=== PATIENT | female | born 1930 | race Caucasian/White ===

== ENCOUNTER 2016-11-04 10:22 | Inpatient (IN) | payer MEDICARE, BC ==
[2016-11-04] MEDS ORDERED: Diltiazem 25 MG/5 ML SDV IVPUSH STA (10:59)
[2016-11-04] MEDS ORDERED: Diltiazem 125 MG in Sodium Chloride 0.9% 100 ML IV SCH (11:00)
[2016-11-04] MEDS ORDERED: Enoxaparin 80 MG/0.8 ML Syringe SUBCUT STA (11:00)
--- NOTE | 2016-11-04 11:10 | EDM.PDOC ---
ED HPI GENERAL MEDICAL PROBLEM - General Chief Complaint: Cardiovascular Problem Stated Complaint: WEAK Time Seen by Provider: 11/04/16 10:29 Source of Information: Reports: Patient, Family, RN Notes Reviewed History Limitations: Reports: No Limitations - History of Present Illness INITIAL COMMENTS - FREE TEXT/NARRATIVE: The patient states that she tried to get up around 04:00 this morning, but was too weak. Her generalized weakness has persisted. She denies chest pain, palpitations, dyspnea, nausea, vomiting, diaphoresis, anxiety, constipation, diarrhea, or urinary symptoms. She states that she has had similar symptoms where she was too weak to stand last year, but it lasted only about 30 minutes, and the patient did not seek Medical evaluation. The patient's PCP is Morenita Guerra. - Related Data Allergies Allergy/AdvReac Type Severity Reaction Status Date / Time No Known Allergies Allergy Verified 11/04/16 10:58 Home Meds: Home Meds Aspirin [Ecotrin] 81 mg PO DAILY 11/04/16 [History] Atenolol 25 mg PO BID 11/04/16 [History] Benazepril [Lotensin] 60 mg PO DAILY 11/04/16 [History] Simvastatin [Zocor] 20 mg PO QPM 11/04/16 [History] Triamterene/Hydrochlorothiazid [Triamterene-HCTZ 75-50 MG] 0.5 tab PO DAILY [History] amLODIPine [Norvasc] 2.5 mg PO DAILY 11/04/16 [History] glipiZIDE [Glucotrol] 2.5 mg PO BID 11/04/16 [History] Past Medical History Cardiovascular History: Reports: High Cholesterol, Hypertension Musculoskeletal History: Reports: Arthritis Endocrine/Metabolic History: Reports: Diabetes, Type II - Past Surgical History HEENT Surgical History: Reports: Cataract Surgery, Tonsillectomy GI Surgical History: Reports: Appendectomy, Cholecystectomy Female Surgical History: Reports: Hysterectomy Musculoskeletal Surgical History: Reports: Arthroscopic Procedure (right knee) Social & Family History - Tobacco Use Smoking Status *Q: Never Smoker - Caffeine Use Caffeine Use: Reports: Coffee - Alcohol Use Alcohol Use History: Yes Alcohol Use Frequency: Socially - Recreational Drug Use Recreational Drug Use: No - Living Situation & Occupation Living situation: Reports: , Alone Occupation: Retired ED ROS GENERAL - Review of Systems Review Of Systems: See Below Constitutional: Reports: No Symptoms HEENT: Reports: No Symptoms Respiratory: Reports: No Symptoms Cardiovascular: Reports: No Symptoms Endocrine: Reports: No Symptoms GI/Abdominal: Reports: No Symptoms : Reports: No Symptoms Musculoskeletal: Reports: No Symptoms Skin: Reports: No Symptoms Neurological: Reports: No Symptoms Psychiatric: Reports: No Symptoms Hematologic/Lymphatic: Reports: No Symptoms Immunologic: Reports: No Symptoms ED EXAM, GENERAL - Physical Exam Exam: See Below Exam Limited By: No Limitations General Appearance: Alert, WD/WN, No Apparent Distress Eye Exam: Bilateral Eye: Normal Inspection Ears: Normal External Exam, Hearing Grossly Normal Ear Exam: Bilateral Ear: Auricle Normal Nose: Normal Inspection, No Blood Throat/Mouth: Normal Inspection, Normal Lips, Normal Voice, No Airway Compromise Head: Atraumatic, Normocephalic Neck: Normal Inspection, Full Range of Motion Respiratory/Chest: No Respiratory Distress, Lungs Clear, Normal Breath Sounds, No Accessory Muscle Use Cardiovascular: Normal Peripheral Pulses, No Edema, No Gallop, No JVD, No Murmur , No Rub, Tachycardia, Irregularly Irregular Peripheral Pulses: 4+: Radial (L), Radial (R) GI/Abdominal: Normal Bowel Sounds, Soft, Non-Tender, No Organomegaly, No Distention, No Abnormal Bruit, No Mass (Female) Exam: Deferred Rectal (Female) Exam: Deferred Back Exam: Normal Inspection, Full Range of Motion, NT Extremities: Normal Inspection, Normal Range of Motion, No Pedal Edema, Normal Capillary Refill Neurological: Alert, Oriented, Normal Cognition, No Motor/Sensory Deficits Psychiatric: Normal Affect Skin Exam: Warm, Dry, Intact, Normal Color, No Rash Lymphatic: No Adenopathy EKG INTERPRETATION EKG Date: 11/04/16 Time: 10:32 Rhythm: a-fib Rate (beats/min): 130 [place]: normal P-wave: absent QRS: normal ST-T: normal QT: normal Comparison: NA - no prior EKG Course - Vital Signs Last Recorded V/S: Last Vital Signs Temp 36.3 C 11/04/16 10:26 Pulse 140 H 11/04/16 10:26 Resp 18 11/04/16 10:26 BP 159/101 H 11/04/16 10:26 Pulse Ox 97 11/04/16 10:26 - Orders/Labs/Meds Orders: Active Orders 24 hr Category Date Time Status EKG Documentation Completion [RC] STAT Care 11/04/16 10:35 Active EKG Documentation Completion [RC] STAT Care 11/04/16 11:39 Active Diltiazem 125 mg Med 11/04/16 11:00 Active Sodium Chloride 0.9% [Normal Saline] 100 ml IV TITRATE Sodium Chloride 0.9% [Normal Saline] 1,000 ml Med 11/04/16 13:00 Active IV ASDIRECTED Sodium Chloride 0.9% [Normal Saline] 100 ml Med 11/04/16 13:00 Active IV ASDIRECTED Sodium Chloride 0.9% [Saline Flush] Med 11/04/16 12:52 Active 10 ml FLUSH ONETIME PRN Medication Orders Diltiazem HCl 125 mg/ Sodium (Chloride) 125 mls @ 10 mls/hr IV TITRATE YOLANDA; 10 MG/HR PRN Reason: Protocol Last Admin: 11/04/16 11:35 Dose: 10 mg/hr, 10 mls/hr Sodium Chloride (Normal Saline) 1,000 mls @ 80 mls/hr IV ASDIRECTED YOLANDA Last Admin: 11/04/16 13:32 Dose: 80 mls/hr Sodium Chloride (Normal Saline) 100 mls @ 80 mls/hr IV ASDIRECTED YOLANDA Last Admin: 11/04/16 13:16 Dose: 80 mls/hr Sodium Chloride (Saline Flush) 10 ml FLUSH ONETIME PRN PRN Reason: IV FLUSH Last Admin: 11/04/16 13:16 Dose: 10 ml Labs: Laboratory Tests 11/04/16 11/04/16 11/04/16 Range/Units 10:30 10:30 10:30 WBC 12.27 H (3.98-10.04) K/mm3 RBC 4.15 (3.98-5.22) M/mm3 Hgb 13.6 (11.2-15.7) gm/L Hct 40.9 (34.1-44.9) % MCV 98.6 H (79.4-94.8) fl MCH 32.8 H (25.6-32.2) pg MCHC 33.3 (32.2-35.5) g/dl RDW Std Deviation 47.5 H (36.4-46.3) fL Plt Count 317 (182-369) K/mm3 MPV 10.2 (9.4-12.3) fl Neutrophils % (Manual) 72 H (40-60) % Band Neutrophils % 2 (0-10) % Lymphocytes % (Manual) 17 L (20-40) % Atypical Lymphs % 0 % Monocytes % (Manual) 7 (2-10) % Eosinophils % (Manual) 0 L (0.7-5.8) % Basophils % (Manual) 2 H (0.1-1.2) Platelet Estimate Adequate RBC Morph Comment Normal PT (8.0-13.0) SECONDS INR APTT (22-36) SECONDS D-Dimer, Quantitative 2.00 H (0.19-0.59) mg/L Sodium 141 (136-145) mEq/L Potassium 4.2 (3.5-5.1) mEq/L Chloride 103 (98-107) mEq/L Carbon Dioxide 26 (21-32) mEq/L Anion Gap 16.2 H (5-15) BUN 29 H (7-18) mg/dL Creatinine 1.3 H (0.55-1.02) mg/dL Est Cr Clr Drug Dosing 26.33 mL/min Estimated GFR (MDRD) 39 (>60) mL/min BUN/Creatinine Ratio 22.3 H (14-18) Glucose 174 H (83-115) mg/dL Calcium 9.3 (8.5-10.1) mg/dL Magnesium 2.0 (1.8-2.4) mg/dl Total Bilirubin 1.0 (0.2-1.0) mg/dL AST 21 (15-37) U/L ALT 41 (14-59) U/L Alkaline Phosphatase 133 H (46-116) U/L Troponin I 0.030 (0.00-0.056) ng/mL B-Natriuretic Peptide (0-100) pg/mL Total Protein 8.6 H (6.4-8.2) g/dl Albumin 4.4 (3.4-5.0) g/dl Globulin 4.2 gm/dL Albumin/Globulin Ratio 1.1 (1-2) TSH 3rd Generation 2.110 (0.358-3.74) uIU/mL Urine Color (Yellow) Urine Appearance (Clear) Urine pH (5.0-8.0) Ur Specific [place] (1.005-1.030) Urine Protein (Negative) Urine Glucose (UA) (Negative) Urine Ketones (Negative) Urine Occult Blood (Negative) Urine Nitrite (Negative) Urine Bilirubin (Negative) Urine Urobilinogen (0.2-1.0) Ur Leukocyte Esterase (Negative) Urine RBC (0-5) /hpf Urine WBC (0-5) /hpf Ur Epithelial Cells (0-5) /hpf Urine Bacteria (FEW) /hpf Urine Mucus (FEW) /hpf 11/04/16 11/04/16 11/04/16 Range/Units 10:30 10:30 11:00 WBC (3.98-10.04) K/mm3 RBC (3.98-5.22) M/mm3 Hgb (11.2-15.7) gm/L Hct (34.1-44.9) % MCV (79.4-94.8) fl MCH (25.6-32.2) pg MCHC (32.2-35.5) g/dl RDW Std Deviation (36.4-46.3) fL Plt Count (182-369) K/mm3 MPV (9.4-12.3) fl Neutrophils % (Manual) (40-60) % Band Neutrophils % (0-10) % Lymphocytes % (Manual) (20-40) % Atypical Lymphs % % Monocytes % (Manual) (2-10) % Eosinophils % (Manual) (0.7-5.8) % Basophils % (Manual) (0.1-1.2) Platelet Estimate RBC Morph Comment PT 11.2 (8.0-13.0) SECONDS INR 1.03 APTT 26 (22-36) SECONDS D-Dimer, Quantitative (0.19-0.59) mg/L Sodium (136-145) mEq/L Potassium (3.5-5.1) mEq/L Chloride (98-107) mEq/L Carbon Dioxide (21-32) mEq/L Anion Gap (5-15) BUN (7-18) mg/dL Creatinine (0.55-1.02) mg/dL Est Cr Clr Drug Dosing mL/min Estimated GFR (MDRD) (>60) mL/min BUN/Creatinine Ratio (14-18) Glucose (83-115) mg/dL Calcium (8.5-10.1) mg/dL Magnesium (1.8-2.4) mg/dl Total Bilirubin (0.2-1.0) mg/dL AST (15-37) U/L ALT (14-59) U/L Alkaline Phosphatase (46-116) U/L Troponin I (0.00-0.056) ng/mL B-Natriuretic Peptide 454 H (0-100) pg/mL Total Protein (6.4-8.2) g/dl Albumin (3.4-5.0) g/dl Globulin gm/dL Albumin/Globulin Ratio (1-2) TSH 3rd Generation (0.358-3.74) uIU/mL Urine Color Yellow (Yellow) Urine Appearance Clear (Clear) Urine pH 6.0 (5.0-8.0) Ur Specific [place] 1.010 (1.005-1.030) Urine Protein Negative (Negative) Urine Glucose (UA) Negative (Negative) Urine Ketones Negative (Negative) Urine Occult Blood Negative (Negative) Urine Nitrite Negative (Negative) Urine Bilirubin Negative (Negative) Urine Urobilinogen 0.2 (0.2-1.0) Ur Leukocyte Esterase Negative (Negative) Urine RBC Not seen (0-5) /hpf Urine WBC Not seen (0-5) /hpf Ur Epithelial Cells Not seen (0-5) /hpf Urine Bacteria Not seen (FEW) /hpf Urine Mucus Not seen (FEW) /hpf Meds: Medications Generic Name Dose Route Start Last Admin Trade Name Freq PRN Reason Stop Dose Admin Diltiazem HCl 125 mg/ Sodium 125 mls @ 10 mls/hr 11/04/16 11:00 11/04/16 11: 35 Chloride IV 10 mg/hr TITRATE YOLANDA 10 mls/hr Protocol Administration 10 MG/HR Sodium Chloride 1,000 mls @ 80 mls/hr 11/04/16 13:00 11/04/16 13:32 Normal Saline IV 80 mls/hr ASDIRECTED YOLANDA Administration Sodium Chloride 100 mls @ 80 mls/hr 11/04/16 13:00 11/04/16 13:16 Normal Saline IV 80 mls/hr ASDIRECTED YOLANDA Administration Sodium Chloride 10 ml 11/04/16 12:52 11/04/16 13:16 Saline Flush FLUSH 10 ml ONETIME PRN Administration IV FLUSH Discontinued Medications Generic Name Dose Route Start Last Admin Trade Name Freq PRN Reason Stop Dose Admin Diltiazem HCl 20 mg 11/04/16 10:59 11/04/16 11:09 Diltiazem IVPUSH 11/04/16 11:00 20 mg ONETIME STA Administration Enoxaparin Sodium 80 mg 11/04/16 11:00 11/04/16 11:18 Lovenox SUBCUT 11/04/16 11:01 80 mg ONETIME STA Administration Iopamidol 100 ml 11/04/16 12:52 11/04/16 13:16 Isovue-370 (76%) IVPUSH 11/04/16 12:53 100 ml ONETIME ONE Administration - Radiology Interpretation Free Text/Narrative:: Two-view chest radiograph reviewed. Cardiac silhouette is at the upper limits of normal. Mild pulmonary vascular congestion, suggestive of mild CHF decompensation. No pleural effusions. No focal infiltrate. No pneumothorax. Formal read per the Radiologist pending. CT angiogram of the chest is read by Dr. Atkinson as: 1. No findings of pulmonary embolism. 2. Several small nodules within the right middle lobe and lung base which are nonspecific measuring less than 5 mm. 3. Other incidental findings. - Re-Assessments/Exams Free Text/Narrative Re-Assessment/Exam: 11/04/16 11:19 The patient is in atrial fibrillation with rapid ventricular response. I will start her on Cardizem IV push and drip, and anticoagulate with subcutaneous Lovenox. She will require admission. 11/04/16 11:40 The patient appears to have converted to NSR. I have ordered a repeat ECG to confirm. 11/04/16 12:00 The patient's repeat ECG shows atrial fibrillation at 88 bpm. It is unclear if the patient converted to sinus rhythm and re-developed to atrial fibrillation, or if she remained in atrial fibrillation entire time. 11/04/16 14:[address] Heart at 14:47. He agrees to admit the patient to the ICU. Departure - Departure Time of Disposition: 14:50 Disposition: Admitted As Inpatient 65 Condition: fair Clinical Impression: New onset atrial fibrillation - My Orders Last 24 Hours: My Active Orders 11/04/16 10:35 EKG Documentation Completion [RC] STAT 11/04/16 11:00 Diltiazem 125 mg Sodium Chloride 0.9% [Normal Saline] 100 ml IV TITRATE 11/04/16 11:39 EKG Documentation Completion [RC] STAT 11/04/16 12:52 Sodium Chloride 0.9% [Saline Flush] 10 ml FLUSH ONETIME PRN 11/04/16 13:00 Sodium Chloride 0.9% [Normal Saline] 1,000 ml IV ASDIRECTED Sodium Chloride 0.9% [Normal Saline] 100 ml IV ASDIRECTED - Assessment/Plan Last 24 Hours: My Active Orders 11/04/16 10:35 EKG Documentation Completion [RC] STAT 11/04/16 11:00 Diltiazem 125 mg Sodium Chloride 0.9% [Normal Saline] 100 ml IV TITRATE 11/04/16 11:39 EKG Documentation Completion [RC] STAT 11/04/16 12:52 Sodium Chloride 0.9% [Saline Flush] 10 ml FLUSH ONETIME PRN 11/04/16 13:00 Sodium Chloride 0.9% [Normal Saline] 1,000 ml IV ASDIRECTED Sodium Chloride 0.9% [Normal Saline] 100 ml IV ASDIRECTED
--- NOTE | 2016-11-04 12:28 | CR ---
Chest: Two views of the chest were obtained. Comparison: No previous study. Heart is enlarged. Upper mediastinum is normal. Pulmonary vessels are felt to be minimally congested. Mild degenerative change is seen within the spine. Impression: 1. Findings suggestive of mild CHF. Diagnostic code #3
[2016-11-04] MEDS ORDERED: Iopamidol 755 Mg/ML 100 ML Bottle IVPUSH ONE (12:52)
[2016-11-04] MEDS ORDERED: Sodium Chloride 0.9% 100 ML IV SCH (13:00)
[2016-11-04] MEDS ORDERED: Sodium Chloride 0.9% 1,000 ML IV SCH (13:00)
[2016-11-04] MEDS: Sodium Chloride 0.9% 10 ML Syringe FLUSH PRN (13:16)
--- NOTE | 2016-11-04 13:34 | CT ---
CT chest Technique: Multiple axial sections through the chest were obtained. Intravenous contrast was utilized. Findings: Pulmonary arteries are moderately well opacified. No discrete filling defects are seen to indicate pulmonary embolism. Mild coronary artery calcification is seen. Heart is mildly enlarged. Visualized upper abdominal structures appear within normal limits. Mediastinum and hilar regions show small lymph nodes which are felt to be within normal limits. Small subpleural several small nodules are noted within the right middle lobe and right lung base measuring less than 5 mm. Lungs otherwise are clear. Bone window settings shows scattered degenerative spurring within the spine. Impression: 1. No findings of pulmonary embolism. 2. Several small nodules within the right middle lobe and right lung base which are nonspecific measuring less than 5 mm. 3. Other incidental findings. Diagnostic code #3
--- NOTE | 2016-11-04 15:09 | PCM.HP ---
H&P History of Present Illness - General Date of Service: 11/04/16 Admit Problem/Dx: Atrial Fibrillation with RVR and Generalized Weakness Source of Information: Patient, Family, Provider, RN Notes Reviewed History Limitations: Reports: No Limitations - History of Present Illness Initial Comments - Free Text/Narative: This is an 86 yo elderly white female with past medical hx/o HTN, HLD, OA and DM2 who comes in with complaints of generalized weakness that started about 4 o' clock this morning. She denies any other associated symptoms. Patient reports a similar episode about a year ago that lasted about half an hour but did not seek medical evaluation. Patient carries no hx/o CAD, Lung Disease or Malignant Cardiac Rhythm. She denies having any thyroid issues. Her initial work up in ED shows a CBC remarkable for WBC of 12.27, and Neutrophils of 72%. Her chemistry is significant for AG of 16.2, BUN of 29, Cr of 1.3, BNP of 454, Alk Phos 133, INR of 1.03, and D-dimer of 2. Her TSh is 2.1. CXR shows minimal pulmonary vascular congestion. CTA shows no PE but noted for several small nodules with the RML and RLL measuring < 5 mm. Her EKG shows Atrial fibrillation with a HR of 130 and PVCs. Patient received initial treatment in ED for rate control before she was sent to the unit for further management. She is presumptive full code at this time. - Related Data Allergies/Adverse Reactions: Allergies Allergy/AdvReac Type Severity Reaction Status Date / Time No Known Allergies Allergy Verified 11/04/16 10:58 Home Medications: Home Meds Aspirin [Ecotrin] 81 mg PO DAILY 11/04/16 [History] Atenolol 25 mg PO BID 11/04/16 [History] Benazepril [Lotensin] 60 mg PO DAILY 11/04/16 [History] Simvastatin [Zocor] 20 mg PO QPM 11/04/16 [History] Triamterene/Hydrochlorothiazid [Triamterene-HCTZ 75-50 MG] 0.5 tab PO DAILY [History] amLODIPine [Norvasc] 2.5 mg PO DAILY 11/04/16 [History] glipiZIDE [Glucotrol] 2.5 mg PO BID 11/04/16 [History] Past Medical History Cardiovascular History: Reports: High Cholesterol, Hypertension APPLICATION SUPPORT INTERN History: Reports: Musculoskeletal History: Reports: Arthritis Endocrine/Metabolic History: Reports: Diabetes, Type II - Past Surgical History HEENT Surgical History: Reports: Cataract Surgery, Tonsillectomy GI Surgical History: Reports: Appendectomy, Cholecystectomy Female Surgical History: Reports: Hysterectomy Musculoskeletal Surgical History: Reports: Arthroscopic Procedure (right knee) Social & Family History - Tobacco Use Smoking Status *Q: Never Smoker - Caffeine Use Caffeine Use: Reports: Coffee - Recreational Drug Use Recreational Drug Use: No - Living Situation & Occupation Living situation: Reports: , Alone Occupation: Retired H&P Review of Systems - Review of Systems: Review Of Systems: See Below General: Denies: Fever, Chills, Fatigue, Decreased Appetite HEENT: Reports: No Symptoms Pulmonary: Denies: Shortness of Breath Cardiovascular: Denies: Chest Pain, Palpitations, Dyspnea on Exertion, Edema, Lightheadedness, Syncope, Blood Pressure Problem Gastrointestinal: Denies: Abdominal Pain, Nausea, Vomiting Genitourinary: Reports: No Symptoms Musculoskeletal: Reports: No Symptoms Skin: Denies: Cyanosis, Pruritis, Rash, Erythema Psychiatric: Denies: Depression, Anxiety, Cravings, Hallucinations Neurological: Denies: Confusion, Syncope, Difficulty Walking, Gait Disturbance Hematologic/Lymphatic: Reports: No Symptoms Immunologic: Reports: No Symptoms Exam - Exam Exam: See Below - Vital Signs Vital Signs: Last Vital Signs Temp 36.3 C 11/04/16 10:26 Pulse 140 H 11/04/16 10:26 Resp 18 11/04/16 10:26 BP 159/101 H 11/04/16 10:26 Pulse Ox 97 11/04/16 10:26 Weight: 80.739 kg - Exam General: Alert, Oriented, Cooperative. No: Mild Distress HEENT: Conjunctiva Clear, EACs Clear, EOMI, Hearing Intact, Mucosa Moist & [place] , Nares Patent, Normal Nasal Septum, Posterior Pharynx Clear, Pupils Equal, Pupils Reactive Neck: Supple, Trachea Midline Lungs: Clear to Auscultation, Normal Respiratory Effort Cardiovascular: Irregular Rhythm Abdomen: Normal Bowel Sounds, Soft. No: Organomegaly, Tenderness (Female) Exam: Deferred Rectal (Female) Exam: Deferred Back Exam: Normal Inspection, Vertebral Tenderness Extremities: Normal Inspection, Normal Pulses. No: Edema Peripheral Pulses: 2+: Posterior Tibial (L), Posterior Tibial (R), Dorsalis Pedis (L), Dorsalis Pedis (R) Skin: Warm, Dry, Intact Neuro Extensive - Mental Status: Oriented x3, Normal Cognition, Memory Intact Neuro Extensive - Motor, Sensory, Reflexes: CN II-XII Intact, Normal Gait Psychiatric: Alert, Normal Affect, Normal Mood - Patient Data Result Diagrams: 11/04/16 10:30 11/04/16 10:30 *Q Meaningful Use (ADM) - VTE *Q VTE Criteria *Q: - Stroke *Q Stroke Criteria *Q: - AMI *Q AMI Criteria *Q: Problem List Initiated/Reviewed/Updated: Yes Orders Last 24hrs: Medication Orders Diltiazem HCl 125 mg/ Sodium (Chloride) 125 mls @ 10 mls/hr IV TITRATE YOLANDA; 10 MG/HR PRN Reason: Protocol Last Admin: 11/04/16 11:35 Dose: 10 mg/hr, 10 mls/hr Sodium Chloride (Normal Saline) 1,000 mls @ 80 mls/hr IV ASDIRECTED YOLANDA Last Admin: 11/04/16 13:32 Dose: 80 mls/hr Sodium Chloride (Saline Flush) 10 ml FLUSH ONETIME PRN PRN Reason: IV FLUSH Last Admin: 11/04/16 13:16 Dose: 10 ml Assessment/Plan Comment:: Assessment/Plan: Acute: New Onset of Atrial Fibrillation with RVR - HR in the 130s - Had similar episode in the past: over a year ago - It's possible this is PAF - Responded to well to Cardizem - [id number] Score is 5 High Risk with 6.7% Yearly Risk of Stroke w/o Anticoagulation - Offered Warfarin vs DOACs: she selected xarelto po daily for convenience ( pharmacy to dose) - No recent GI, Neurologic, Spinal or Any kind of Major Bleed - HAS BLED Score: 3 points patient is at high risk for major bleeding - Patient also on ASA which would even put her at a higher risk for stroke - Discussed with patient, we will d/c ASA and keep her only on xarelto Elevated BNP - BNP 454 - Could not appreciate volume overload status - She denies any hx/o HF - Possible she may have HF with Reduced EF (Diastolic) - ED echo and repeat level in am Elevated D-Dimer - CTA negative Small Several Pulmonary Nodules - On RMl and RLL measuring < 5 mm - Informed patient and daughter who was present at bedside Chronic: HTN HLD OA DM2 Plan: Admit to ICU W/ Tele She is currently on Cardizem drip Resume Home Meds PT/OT consult FT4 and Vit D level CE Q6 X 2 more SW/CM for d/c planning Code Status: TBD (presumptive full code at this time)
[2016-11-04] MEDS ORDERED: Diphtheria,Pertussis(Acell),Tetanus Vaccine 0.5 ML SDV inactive IM ONE (15:38)
[2016-11-04] MEDS ORDERED: Metoprolol Tartrate 5 MG/5 ML SDV IVPUSH PRN (16:28)
[2016-11-04] MEDS ORDERED: hydrALAZINE 20 MG/ML SDV IVPUSH PRN (16:28)
[2016-11-04] MEDS ORDERED: Bisacodyl 5 MG Tab PO PRN (16:29)
[2016-11-04] MEDS ORDERED: Acetaminophen/HYDROcodone 325-5 MG Tab PO PRN (16:29)
[2016-11-04] MEDS ORDERED: Ondansetron 4 MG/2 ML SDV IV PRN (16:29)
[2016-11-04] MEDS ORDERED: HYDROmorphone 0.5 MG/0.5 ML Syringe IVPUSH PRN (16:29)
[2016-11-04] MEDS ORDERED: Promethazine 12.5 MG in Sodium Chloride 0.9% 50 ML IV PRN (16:29)
[2016-11-04] MEDS ORDERED: Polyethylene Glycol 3350 Powder 17 GM Packet PO PRN (16:29)
[2016-11-04] MEDS ORDERED: Albuterol/Ipratropium 3.0-0.5 MG/3 ML Neb Soln NEB PRN (16:29)
[2016-11-04] MEDS ORDERED: Temazepam 7.5 MG Cap PO PRN (16:29)
[2016-11-04] MEDS ORDERED: Acetaminophen 325 MG Tab PO PRN (16:29)
[2016-11-04] MEDS ORDERED: LORazepam 2 MG/ML MDV IV PRN (16:29)
[2016-11-04] MEDS ORDERED: Diltiazem 120 MG Cap.CD PO ONE (16:36)
[2016-11-04] MEDS ORDERED: Simvastatin 10 MG Tab PO SCH (18:00)
[2016-11-04] MEDS: glipiZIDE 5 MG Tab PO SCH (20:35)
[2016-11-04] MEDS: Atenolol 25 MG Tab PO SCH (20:35)
[2016-11-05] MEDS: Atenolol 25 MG Tab PO SCH (08:24)
[2016-11-05] MEDS: glipiZIDE 5 MG Tab PO SCH (08:24)
[2016-11-05] MEDS: Sodium Chloride 0.9% 10 ML Syringe FLUSH PRN (08:29)
[2016-11-05] MEDS ORDERED: Diltiazem 120 MG Cap.CD PO SCH (09:00)
[2016-11-05] MEDS ORDERED: Hydrochlorothiazide/Triamterene 50-75 MG Tab PO SCH (09:00)
[2016-11-05] MEDS ORDERED: amLODIPine 2.5 MG Tab PO SCH (09:00)
[2016-11-05] MEDS ORDERED: Aspirin 81 MG Tab.EC PO SCH (09:00)
[2016-11-05] MEDS ORDERED: Rivaroxaban 10 MG Tab PO SCH (10:00)
--- NOTE | 2016-11-05 12:03 | PCM.DCSUM1 ---
Discharge Summary - Hospital Course Brief History: This is an 86 yo elderly white female with past medical hx/o HTN , HLD, OA and DM2 who comes in with complaints of generalized weakness and was found in Atrial Fibrillation with RVR. - Discharge Data Discharge Date: 11/05/16 Discharge Disposition: Home, Self-Care 01 Condition: Good - Discharge Diagnosis/Problem(s) (1) New onset atrial fibrillation SNOMED Code(s): 80682763 ICD Code: I48.91 - UNSPECIFIED ATRIAL FIBRILLATION Status: Acute - Patient Summary/Data Operative Procedure(s) Performed: None Complications: None Consults: Consultations 11/04/16 16:33 Consult to Case Management [CONS] Routine Consult to Motel Manager [CONS] Routine Consult to Spiritual Care [CONS] Routine OT Evaluation and Treatment [CONS] Routine PT Evaluation and Treatment [CONS] Routine Recommended Follow-up Testing/Procedures: None Hospital Course: Patient was primarily admitted for medical management of new onset of atrial fibrillation with RVR. Patient received initial treatment in the emergency department before she was sent to the unit for further care. Patient was then placed on calcium channel mely for rate control along with her atenolol home dose. She responded well to treatment. After discussing traditional anticoagulation versus direct oral anticoagulation , the patient elected xarelto for convenience. Patient carries [id number] Score is 5 and HAS BLED Score of 3 putting her at high risk for major bleeding. Therefore, we decided to stop her aspirin, keep her xarelto only. Her hospital course was fairly uncomplicated. However, she was found to have elevated d-dimer and admission, but CTA was negative for blood clot. Abnormal finding of small several pulmonary nodules on right middle lobe and right lower lobe, measuring less than 5 mm were found on his CT scan. This was relayed to the patient and her daughter. Patient to have this monitored by her family doctor. Overall, patient has done well since admission. She is now ready for discharge. She will go home with xarelto along with Cardizem as part of her rate control and stroke prophylaxis meds for atrial fibrillation. Patient was advised to followup with her primary care has a scheduled. She was further advised to call her doctor for any questions or concerns. - Patient Instructions Diet: Usual Diet as Tolerated, Diabetic Diet Activity: As Tolerated Driving: Do Not Drive Showering/Bathing: May Shower Notify Provider of: Fever, Increased Pain, Nausea and/or Vomiting Other/Special Instructions: - Please take all your meds as directed. - Avoid NSAIDs e.g. Motrin, Ibuprofen, Advil and Aleve. - Follow up with your doctor in 1 week. - Call your family doctor for any questions or concerns - Discharge Plan Prescriptions/Med Rec: Diltiazem [Cardizem CD] 120 mg PO DAILY #30 cap.cd Rivaroxaban [Xarelto] 15 mg PO DAILY #30 tablet Home Medications: Home Meds Atenolol 25 mg PO BID 11/04/16 [History] Benazepril [Lotensin] 60 mg PO DAILY 11/04/16 [History] Simvastatin [Zocor] 20 mg PO QPM 11/04/16 [History] Triamterene/Hydrochlorothiazid [Triamterene-HCTZ 75-50 MG] 0.5 tab PO DAILY [History] amLODIPine [Norvasc] 2.5 mg PO DAILY 11/04/16 [History] glipiZIDE [Glucotrol] 2.5 mg PO BID 11/04/16 [History] Diltiazem [Cardizem CD] 120 mg PO DAILY #30 cap.cd 11/05/16 [Rx] Rivaroxaban [Xarelto] 15 mg PO DAILY #30 tablet 11/05/16 [Rx] Patient Handouts: Rivaroxaban oral tablets, Atrial Fibrillation, [id number] Referrals: Morenita Guerra NP [Primary Care Provider] - 11/10/16 9:30 am - Discharge Summary/Plan Comment DC Time >30 min.: Yes (45 mins) Discharge Summary/Plan Comment: Discharge to Home - General Info Date of Service: 11/05/16 Admission Dx/Problem (Free Text: Atrial Fibrillation with RVR and Generalized Weakness Subjective Update: Follow Up Functional Status: Reports: pain controlled, tolerating diet, ambulating, urinating. Denies: new symptoms - Review of Systems General: Denies: Fever, Weakness, Fatigue, Malaise HEENT: Reports: no symptoms Pulmonary: Denies: shortness of breath Cardiovascular: Denies: Chest Pain, Palpitations Gastrointestinal: Denies: Abdominal pain, Nausea, Vomiting Genitourinary: Reports: no symptoms Musculoskeletal: Reports: no symptoms Neurological: Reports: No Symptoms. Denies: Confusion, Difficulty Walking, Weakness, Gait Disturbance Psychiatric: Denies: depression, mood lability, anxiety, agitation, hallucinations Systems Review Comment: No overnight or acute issues. She is doing relatively well. - Patient Data Vitals - Most Recent: Last Vital Signs Temp 36.8 C 11/05/16 11:27 Pulse 93 11/05/16 08:25 Resp 16 11/05/16 11:27 BP 101/60 11/05/16 11:27 Pulse Ox 94 L 11/05/16 11:27 Weight - Most Recent: 86.636 kg I&O - Last 24 hours: Intake & Output 11/04/16 11/05/16 11/05/16 22:59 06:59 14:59 Intake Total 470 730 Output Total 1600 600 Balance -1130 130 Imaging Impressions - Last 24 hrs: 2-D echo : Left ventricular ejection fraction estimated 55-60%. Normal left into a systolic function. Elevated left atrial and left ventricle end-diastolic pressure. Mild concentric left ventricle hypertrophy. Moderately dilated left atrium. Mild aortic valve sclerosis. Mild to moderate mitral valve regurgitation. Inferior vena cava is dilated with respiratory variation less than 50%. No regional wall motion abnormalities. Lab Results - Last 24 hrs: Laboratory Results - last 24 hr 11/04/16 11/05/16 11/05/16 Range/Units 18:10 04:29 04:29 WBC 9.86 (3.98-10.04) K/mm3 RBC 3.74 L (3.98-5.22) M/mm3 Hgb 12.0 (11.2-15.7) gm/L Hct 36.9 (34.1-44.9) % MCV 98.7 H (79.4-94.8) fl MCH 32.1 (25.6-32.2) pg MCHC 32.5 (32.2-35.5) g/dl RDW Std Deviation 46.4 H (36.4-46.3) fL Plt Count 311 (182-369) K/mm3 MPV 10.4 (9.4-12.3) fl Neut % (Auto) 59.8 (34.0-71.1) % Lymph % (Auto) 23.4 (19.3-51.7) % Moffat % (Auto) 12.5 (4.7-12.5) % Eos % (Auto) 3.1 (0.7-5.8) Baso % (Auto) 1.0 (0.1-1.2) % Neut # (Auto) 5.89 (1.56-6.13) K/mm3 Lymph # (Auto) 2.31 (1.18-3.74) K/mm3 Moffat # (Auto) 1.23 H (0.24-0.36) K/mm3 Eos # (Auto) 0.31 (0.04-0.36) K/mm3 Baso # (Auto) 0.10 H (0.01-0.08) K/mm3 Sodium 135 L (136-145) mEq/L Potassium 4.3 (3.5-5.1) mEq/L Chloride 101 (98-107) mEq/L Carbon Dioxide 24 (21-32) mEq/L Anion Gap 14.3 (5-15) BUN 27 H (7-18) mg/dL Creatinine 1.3 H (0.55-1.02) mg/dL Est Cr Clr Drug Dosing 26.33 mL/min Estimated GFR (MDRD) 39 (>60) mL/min BUN/Creatinine Ratio 20.8 H (14-18) Glucose 187 H (83-115) mg/dL Calcium 8.7 (8.5-10.1) mg/dL Magnesium 2.0 (1.8-2.4) mg/dl CK-MB (CK-2) 2.7 1.7 (0-3.6) ng/ml Troponin I 0.050 0.029 (0.00-0.056) ng/mL B-Natriuretic Peptide (0-100) pg/mL 11/05/16 Range/Units 04:29 WBC (3.98-10.04) K/mm3 RBC (3.98-5.22) M/mm3 Hgb (11.2-15.7) gm/L Hct (34.1-44.9) % MCV (79.4-94.8) fl MCH (25.6-32.2) pg MCHC (32.2-35.5) g/dl RDW Std Deviation (36.4-46.3) fL Plt Count (182-369) K/mm3 MPV (9.4-12.3) fl Neut % (Auto) (34.0-71.1) % Lymph % (Auto) (19.3-51.7) % Moffat % (Auto) (4.7-12.5) % Eos % (Auto) (0.7-5.8) Baso % (Auto) (0.1-1.2) % Neut # (Auto) (1.56-6.13) K/mm3 Lymph # (Auto) (1.18-3.74) K/mm3 Moffat # (Auto) (0.24-0.36) K/mm3 Eos # (Auto) (0.04-0.36) K/mm3 Baso # (Auto) (0.01-0.08) K/mm3 Sodium (136-145) mEq/L Potassium (3.5-5.1) mEq/L Chloride (98-107) mEq/L Carbon Dioxide (21-32) mEq/L Anion Gap (5-15) BUN (7-18) mg/dL Creatinine (0.55-1.02) mg/dL Est Cr Clr Drug Dosing mL/min Estimated GFR (MDRD) (>60) mL/min BUN/Creatinine Ratio (14-18) Glucose (83-115) mg/dL Calcium (8.5-10.1) mg/dL Magnesium (1.8-2.4) mg/dl CK-MB (CK-2) (0-3.6) ng/ml Troponin I (0.00-0.056) ng/mL B-Natriuretic Peptide 388 H (0-100) pg/mL Med Orders - Current: Current Medications Acetaminophen (Tylenol) 650 mg PO Q4H PRN PRN Reason: Pain (Mild 1-3)/fever Hydrocodone Bitart/Acetaminophen (Pinon 325-5 Mg) 1 tab PO Q4H PRN PRN Reason: Pain (moderate 4-6) Albuterol/Ipratropium (Duoneb 3.0-0.5 Mg/3 Ml) 3 ml NEB Q4H PRN PRN Reason: Shortness Of Breath/wheezing Amlodipine Besylate (Norvasc) 2.5 mg PO DAILY [facility] Last Admin: 11/05/16 08:25 Dose: 2.5 mg Aspirin (Halfprin) 81 mg PO DAILY [facility] Last Admin: 11/05/16 08:24 Dose: 81 mg Atenolol (Tenormin) 25 mg PO BID [facility] Last Admin: 11/05/16 08:24 Dose: 25 mg Benazepril HCl (Lotensin) 60 mg PO DAILY [facility] Last Admin: 11/05/16 08:24 Dose: 60 mg Bisacodyl (Dulcolax) 5 mg PO DAILY PRN PRN Reason: Constipation Diltiazem HCl (Cardizem Cd) 120 mg PO DAILY [facility] Last Admin: 11/05/16 08:25 Dose: 120 mg Glipizide (Glucotrol) 2.5 mg PO BID [facility] Last Admin: 11/05/16 08:24 Dose: 2.5 mg Hydralazine HCl (Apresoline) 10 mg IVPUSH Q4H PRN PRN Reason: Hypertension Hydromorphone HCl (Dilaudid) 0.25 mg IVPUSH Q2H PRN PRN Reason: Pain (severe 7-10) Diltiazem HCl 125 mg/ Sodium (Chloride) 125 mls @ 10 mls/hr IV TITRATE YOLANDA; 10 MG/HR PRN Reason: Protocol Last Titration: 11/04/16 23:09 Dose: 0 mg/hr, 0 mls/hr Promethazine HCl 12.5 mg/ (Sodium Chloride) 50.5 mls @ 100 mls/hr IV Q6H PRN PRN Reason: Nausea/Vomiting Lorazepam (Ativan) 0.25 mg IV Q6H PRN PRN Reason: Anxiety Metoprolol Tartrate (Lopressor) 5 mg IVPUSH Q4H PRN PRN Reason: Tachycardia Ondansetron HCl (Zofran) 4 mg IV Q6H PRN PRN Reason: Nausea/Vomiting Polyethylene Glycol (Miralax) 17 gm PO DAILY PRN PRN Reason: Constipation Rivaroxaban (Xarelto) 15 mg PO DAILY [facility] Last Admin: 11/05/16 09:34 Dose: 15 mg Senna/Docusate Sodium (Senna Plus) 1 tab PO BID PRN PRN Reason: Constipation Simvastatin (Zocor) 10 mg PO QPM [facility] Last Admin: 11/04/16 20:35 Dose: 10 mg Sodium Chloride (Saline Flush) 10 ml FLUSH ONETIME PRN PRN Reason: IV FLUSH Last Admin: 11/05/16 08:29 Dose: 10 ml Temazepam (Restoril) 7.5 mg PO BEDTIME PRN PRN Reason: Sleep Last Admin: 11/04/16 23:07 Dose: 7.5 mg Triamterene/HCTZ (Maxzide 50-75 Mg) 0.5 each PO DAILY [facility] Last Admin: 11/05/16 08:25 Dose: 0.5 each Discontinued Medications Diltiazem HCl (Diltiazem) 20 mg IVPUSH ONETIME STA Stop: 11/04/16 11:00 Last Admin: 11/04/16 11:09 Dose: 20 mg Diltiazem HCl (Cardizem Cd) 120 mg PO ONETIME ONE Stop: 11/04/16 16:37 Last Admin: 11/04/16 17:11 Dose: 120 mg Diphtheria/Tetanus/Acell Pertussis (Boostrix) 0.5 ml IM .ONCE ONE Stop: 11/04/16 15:39 Enoxaparin Sodium (Lovenox) 80 mg SUBCUT ONETIME STA Stop: 11/04/16 11:01 Last Admin: 11/04/16 11:18 Dose: 80 mg Sodium Chloride (Normal Saline) 1,000 mls @ 80 mls/hr IV ASDIRECTED [facility] Last Admin: 11/04/16 13:32 Dose: 80 mls/hr Sodium Chloride (Normal Saline) 100 mls @ 80 mls/hr IV ASDIRECTED [facility] Last Admin: 11/04/16 13:16 Dose: 80 mls/hr Iopamidol (Isovue-370 (76%)) 100 ml IVPUSH ONETIME ONE Stop: 11/04/16 12:53 Last Admin: 11/04/16 13:16 Dose: 100 ml - Exam General: Reports: alert, oriented, cooperative, no acute distress HEENT: Reports: Pupils equal, Pupils reactive, EOMI, Mucous membr. moist/pink Neck: Reports: supple, trachea midline, no JVD, no thyromegaly Lungs: Reports: Clear to auscultation, Normal respiratory effort Cardiovascular: Reports: Irregular Rhythm Abdomen: Reports: bowel sounds present, soft, no tenderness (Female) Exam: Deferred Rectal (Female) Exam: Deferred Back Exam: Reports: Normal Inspection, Decreased Range of Motion Extremities: Reports: no edema, normal pulses, no tenderness/swelling, no clubbing, no cyanosis, no calf tenderness Neurological: Reports: no new focal deficit Psy/Mental Status: Reports: alert, normal affect, normal mood *Q Meaningful Use (DIS) - VTE *Q VTE Criteria *Q: - Stroke *Q Stroke Criteria *Q: - AMI *Q AMI Criteria *Q:
[2016-11-05 15:26] VITALS: BP 108/65
== END 2016-11-05 16:25 | disposition home or self-care (01) | DRG 310 ==
LOC: JD.ED 10:22 → JD.ICU 14:50
PROVIDERS: ADMIT Internal Medicine; ATTEND Internal Medicine
DX: I48.91 Unspecified atrial fibrillation (principal); R53.1 Weakness; E78.00 Pure hypercholesterolemia, unspecified; R91.8 Other nonspecific abnormal finding of lung field; R79.1 Abnormal coagulation profile; R79.89 Other specified abnormal findings of blood chemistry; I10 Essential (primary) hypertension; E78.5 Hyperlipidemia, unspecified; M19.90 Unspecified osteoarthritis, unspecified site; E11.9 Type 2 diabetes mellitus without complications; Z79.84 Long term (current) use of oral hypoglycemic drugs; Z79.82 Long term (current) use of aspirin; Z79.899 Other long term (current) drug therapy
CPT/HCPCS: 36415; 71020; 71275; 80053; 81001; 83735; 83880; 84439; 84443; 84484; 85025; 85379; 85610; 85730; 93005 ×2; J1650; J7030 ×2; J7040; J7050; Q9967; 80048; 82553; 93306; 96365; 96366; 96372; 96376; 97116-GP; 97161-GP; 97165-GO; 97530-GO; 99285; 99285-25; A9270-GY; J3490

== ENCOUNTER 2017-08-28 15:14 | Inpatient (IN) | payer MEDICARE, BC ==
--- NOTE | 2017-08-28 15:45 | EDM.PDOC ---
ED HPI GENERAL MEDICAL PROBLEM - General Chief Complaint: Lower Extremity Injury/Pain Stated Complaint: FALL YESTERDAY-TROUBLE WALKING TODAY Time Seen by Provider: 08/28/17 15:42 Source of Information: Reports: Patient History Limitations: Reports: No Limitations - History of Present Illness INITIAL COMMENTS - FREE TEXT/NARRATIVE: Patient is a 87-year-old female with a history of A. fib on Xarelto was walking back into her residence when she tripped over a rug causing her to lose her balance and fall on her right knee. Patient was able to get up on her own accord. Throughout the course of the day she developed increased swelling and pain noted to the knee. Difficulties with weightbearing. Pain is isolated to the right knee. No pain to the right hip, upper leg, lower leg, or foot. No prior injury to the affected extremity. Swelling has persisted. Denies any nausea, hitting her head, loc, neck pain, back pain, or pain to the other extremities. She is on Xarelto for A. fib. This is new onset as of recent. 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 COORDINATOR: Reports: Other (see below) Other 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 COORDINATOR: tylenol Right Leg Pain Score (Numeric/FACES): 4 - Related Data Allergies Allergy/AdvReac Type Severity Reaction Status Date / Time No Known Allergies Allergy Verified 08/28/17 21:23 Home Meds: Home Meds Benazepril [Lotensin] 60 mg PO DAILY 11/04/16 [History] glipiZIDE [Glucotrol] 2.5 mg PO BID 11/04/16 [History] Rivaroxaban [Xarelto] 15 mg PO DAILY #30 tablet 11/05/16 [Rx] Albuterol [Ventolin HFA] 1 puff INH TID PRN 08/28/17 [History] Amiodarone [Cordarone] 200 mg PO DAILY 08/28/17 [History] Furosemide 40 mg PO BID 08/28/17 [History] Metoprolol Succinate 100 mg PO DAILY 08/28/17 [History] Past Medical History Cardiovascular History: Reports: High Cholesterol, Hypertension 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 - Past Surgical History HEENT Surgical History: Reports: Cataract Surgery, Tonsillectomy GI Surgical History: Reports: Appendectomy, Cholecystectomy Female Surgical History: Reports: Hysterectomy Musculoskeletal Surgical History: Reports: Arthroscopic Procedure (right knee) Social & Family History - Family History Family Medical History: Noncontributory - Tobacco Use Smoking Status *Q: Never Smoker Second Hand Smoke Exposure: No - Caffeine Use Caffeine Use: Reports: Coffee Caffeine Use Comment: Has coffee in the morning - Alcohol Use Days Per Week of Alcohol Use: 1 Number of Drinks Per Day: 1 Total Drinks Per Week: 1 - Recreational Drug Use Recreational Drug Use: No - Living Situation & Occupation Living situation: Reports: , Alone Occupation: Retired Review of Systems - Review of Systems Review Of Systems: ROS reveals no pertinent complaints other than HPI. ED EXAM, GENERAL - Physical Exam Exam: See Below Exam Limited By: No Limitations General Appearance: Alert, WD/WN, No Apparent Distress Ears: Hearing Grossly Normal Nose: Normal Inspection Throat/Mouth: Normal Voice, No Airway Compromise Head: Atraumatic, Normocephalic Neck: Normal Inspection, Supple, Non-Tender Respiratory/Chest: No Respiratory Distress, Lungs Clear, No Accessory Muscle Use Cardiovascular: Normal Peripheral Pulses, Regular Rate, Rhythm, Systolic Murmur Peripheral Pulses: 3+: Radial (R) GI/Abdominal: Normal Bowel Sounds, Soft, Non-Tender, No Organomegaly, No Distention Back Exam: Normal Inspection, Other (Swelling noted to the right anterior knee and mild swelling to the right upper and lower leg. Pain with palpation of the distal femur, anterior/lateral/medial knee. Pain with palpation of the inferior aspect of the knee. No acute bony abdomen eyes noted. No pain along the proximal aspect of the fibula. Increased swelling to the right knee with decreased range of motion secondary to pain. Mild swelling noted to the right upper calf. No pain with palpation posteriorly. No pain along the tibia and fibula distally. No pain to the foot or toes.. No sensory deficits. Decreased range of motion of the right knee secondary to swelling and pain.) Neurological: Alert, Oriented, CN II-XII Intact, Normal Cognition Psychiatric: Normal Affect, Normal Mood Skin Exam: Warm, Dry, Intact, Normal Color Course - Vital Signs Last Recorded V/S: Last Vital Signs Temp 98.2 F 08/29/17 07:58 Pulse 48 L 08/29/17 07:58 Resp 24 H 08/29/17 07:58 BP 114/45 L 08/29/17 07:58 Pulse Ox 86 L 08/29/17 07:58 - Orders/Labs/Meds Orders: Active Orders 24 hr Category Date Time Status Peripheral IV Care [RC] . DIRECTED Care 08/28/17 16:04 Inactive Knee Min 4V Rt [CR] Stat Exams 08/28/17 16:03 Taken Knee wo Cont Rt [CT] Stat Exams 08/28/17 17:21 Taken Medication Orders Acetaminophen (Tylenol) 650 mg PO Q4H PRN PRN Reason: Pain (Mild 1-3)/fever Albuterol/Ipratropium (Duoneb 3.0-0.5 Mg/3 Ml) 3 ml NEB Q4H PRN PRN Reason: Shortness Of Breath/wheezing Amiodarone HCl (Cordarone) 200 mg PO DAILY [facility] Last Admin: 08/29/17 09:39 Dose: 200 mg Benazepril HCl (Lotensin) 60 mg PO DAILY YOLANDA Bisacodyl (Dulcolax) 5 mg PO DAILY PRN PRN Reason: Constipation Dextrose/Water (Dextrose 50% In Water) 50 ml IVPUSH ASDIRECTED PRN PRN Reason: Hypoglycemia Docusate Sodium (Colace) 100 mg PO BID PRN PRN Reason: Constipation Furosemide (Lasix) 40 mg PO BIDDIURETIC [facility] Last Admin: 08/29/17 06:40 Dose: 40 mg Glipizide (Glucotrol) 2.5 mg PO BID [facility] Last Admin: 08/29/17 09:35 Dose: 2.5 mg Hydralazine HCl (Apresoline) 10 mg IVPUSH Q4H PRN PRN Reason: Hypertension Hydromorphone HCl (Dilaudid) 0.25 mg IVPUSH Q2H PRN PRN Reason: Pain (severe 7-10) Promethazine HCl 6.25 mg/ (Sodium Chloride) 50.25 mls @ 100 mls/hr IV Q6H PRN PRN Reason: Nausea/Vomiting Insulin Aspart (Novolog) 0 unit SUBCUT BID [facility] PRN Reason: Protocol Last Admin: 08/28/17 23:15 Dose: 1 unit Lorazepam (Ativan) 2 mg IVPUSH Q4H PRN PRN Reason: Seizures Lorazepam (Ativan) 0.25 mg IV Q6H PRN PRN Reason: Anxiety Magnesium Hydroxide (Milk Of Magnesia) 30 ml PO Q12H PRN PRN Reason: Constipation Magnesium Sulfate (Pharmacy To Dose - Magnesium Replacement) 1 dose .XX ASDIRECTED [facility] Metoprolol Succinate (Toprol Xl) 100 mg PO DAILY [facility] Metoprolol Tartrate (Lopressor) 5 mg IVPUSH Q4H PRN PRN Reason: Tachycardia Ondansetron HCl (Zofran) 4 mg IV Q6H PRN PRN Reason: Nausea/Vomiting Oxycodone/Acetaminophen (Percocet 325-5 Mg) 1 tab PO Q4H PRN PRN Reason: Pain (moderate 4-6) Last Admin: 08/29/17 06:38 Dose: 1 tab Admin: 08/28/17 23:17 Dose: 1 tab Polyethylene Glycol (Miralax) 17 gm PO DAILY PRN PRN Reason: Constipation Potassium Chloride (Pharmacy To Dose - Potassium Replacement) 1 dose .XX ASDIRECTED [facility] Rivaroxaban (Xarelto) 15 mg PO DAILY [facility] Last Admin: 08/29/17 09:39 Dose: 15 mg Senna/Docusate Sodium (Senna Plus) 1 tab PO BID PRN PRN Reason: Constipation Temazepam (Restoril) 7.5 mg PO BEDTIME PRN PRN Reason: Sleep Meds: Medications Generic Name Dose Route Start Last Admin Trade Name Freq PRN Reason Stop Dose Admin Acetaminophen 650 mg 08/28/17 22:01 Tylenol PO Q4H PRN Pain (Mild 1-3)/fever Albuterol/Ipratropium 3 ml 08/28/17 22:01 Duoneb 3.0-0.5 Mg/3 Ml NEB Q4H PRN Shortness Of Breath/wheezing Amiodarone HCl 200 mg 08/29/17 09:00 08/29/17 09:39 Cordarone PO 200 mg DAILY [facility] Administration Benazepril HCl 60 mg 08/29/17 09:00 Lotensin PO DAILY [facility] Bisacodyl 5 mg 08/28/17 22:01 Dulcolax PO DAILY PRN Constipation Dextrose/Water 50 ml 08/28/17 22:07 Dextrose 50% In Water IVPUSH ASDIRECTED PRN Hypoglycemia Docusate Sodium 100 mg 08/28/17 22:01 Colace PO BID PRN Constipation Furosemide 40 mg 08/29/17 06:00 08/29/17 06:40 Lasix PO 40 mg BIDDIURETIC YOLANDA Administration Glipizide 2.5 mg 08/29/17 09:00 08/29/17 09:35 Glucotrol PO 2.5 mg BID YOLANDA Administration Hydralazine HCl 10 mg 08/28/17 22:01 Apresoline IVPUSH Q4H PRN Hypertension Hydromorphone HCl 0.25 mg 08/28/17 22:01 Dilaudid IVPUSH Q2H PRN Pain (severe 7-10) Promethazine HCl 6.25 mg/ 50.25 mls @ 100 mls/hr 08/28/17 22:01 Sodium Chloride IV Q6H PRN Nausea/Vomiting Insulin Aspart 0 unit 08/28/17 22:15 08/28/17 23:15 Novolog SUBCUT 1 unit BID [facility] Administration Protocol Lorazepam 2 mg 08/28/17 22:01 Ativan IVPUSH Q4H PRN Seizures Lorazepam 0.25 mg 08/28/17 22:01 Ativan IV Q6H PRN Anxiety Magnesium Hydroxide 30 ml 08/28/17 22:01 Milk Of Magnesia PO Q12H PRN Constipation Magnesium Sulfate 1 dose 08/28/17 22:15 Pharmacy To Dose - Magnesium Replacement .XX ASDIRECTED [facility] Metoprolol Succinate 100 mg 08/29/17 09:00 Toprol Xl PO DAILY [facility] Metoprolol Tartrate 5 mg 08/28/17 22:01 Lopressor IVPUSH Q4H PRN Tachycardia Ondansetron HCl 4 mg 08/28/17 22:01 Zofran IV Q6H PRN Nausea/Vomiting Oxycodone/Acetaminophen 1 tab 08/28/17 22:01 08/29/17 06:38 Percocet 325-5 Mg PO 1 tab Q4H PRN Administration Pain (moderate 4-6) Polyethylene Glycol 17 gm 08/28/17 22:01 Miralax PO DAILY PRN Constipation Potassium Chloride 1 dose 08/28/17 22:15 Pharmacy To Dose - Potassium Replacement .XX ASDIRECTED [facility] Rivaroxaban 15 mg 08/29/17 09:00 08/29/17 09:39 Xarelto PO 15 mg DAILY [facility] Administration Senna/Docusate Sodium 1 tab 08/28/17 22:01 Senna Plus PO BID PRN Constipation Temazepam 7.5 mg 08/28/17 22:01 Restoril PO BEDTIME PRN Sleep Discontinued Medications Generic Name Dose Route Start Last Admin Trade Name [place]ver PRN Reason Stop Dose Admin Hydromorphone HCl 0.5 mg 08/28/17 16:03 08/28/17 16:24 Dilaudid IVPUSH 08/28/17 16:04 Not Given ONETIME ONE Ondansetron HCl 4 mg 08/28/17 16:04 08/28/17 16:24 Zofran IVPUSH 08/28/17 16:05 Not Given ONETIME ONE Oxycodone/Acetaminophen 1 tab 08/28/17 16:10 08/28/17 16:15 Percocet 325-5 Mg PO 08/28/17 16:11 1 tab ONETIME ONE Administration Potassium Chloride 40 meq 08/29/17 09:30 08/29/17 09:39 Klor-Con M20 PO 08/29/17 09:31 40 meq ONETIME ONE Administration Sodium Chloride 10 ml 08/28/17 16:03 Saline Flush FLUSH ASDIRECTED PRN Keep Vein Open - Re-Assessments/Exams Free Text/Narrative Re-Assessment/Exam: IV established Dilaudid 0.5 mg IVP and Zofran 4 mg IVP. X-ray of the right knee will be obtained. 08/28/17 16:10 patient refused IV with Dilaudid. Order Percocet 5-325. This will not provided adequate pain relief prior to the x-ray. Patient understand. 08/28/17 17:21 Dr. Markham and myself reviewed the x-rays with no obvious acute bony abnormalities. Due to the patient's age and mechanism of injury opted to order a CT of the right knee to rule out tibial plateau fracture. Patient resides at home by herself and does not have anybody that can help her at this point. Discussed admission to the hospital for pain control and to arrange placement to [facility] facility until fractured healed. They request to proceed with this plan. Discussed patient with Dr. Heart and he requests consult ortho in [place] since we do not have ortho coverage for detail plan. 08/28/17 18:[address] Franco mill control operator Orthopedic Surgeon at [place] and he agrees conservative treatment. Nonweight-bearing for the first 6 weeks and partial weightbearing for the next 6 weeks. He'll localize her set at 0-30 for a couple weeks advancing to 0-90 by 6 weeks. 1845 Per Charge Nurse floor nursing staff has stated they cannot take another admission. Not enough staff. I was informed will retry once the other charge nurse arrives at 7:00 for admission. 08/28/17 19:21 It has been determined we do have a bed available. Patient meets inpatient status. Departure - Departure Time of Disposition: 19:22 Disposition: Admitted As Inpatient 65 Condition: Fair Clinical Impression: Posterior tibial plateau fracture Qualifiers: Encounter type: initial encounter Fracture type: closed Laterality: right Qualified Code(s): S82.141A - Displaced bicondylar fracture of right tibia, initial encounter for closed fracture - Discharge Information - My Orders Last 24 Hours: My Active Orders 08/28/17 16:03 Knee Min 4V Rt [CR] Stat 08/28/17 16:04 Peripheral IV Care [RC] . DIRECTED 08/28/17 17:21 Knee wo Cont Rt [CT] Stat - Assessment/Plan Last 24 Hours: My Active Orders 08/28/17 16:03 Knee Min 4V Rt [CR] Stat 08/28/17 16:04 Peripheral IV Care [RC] . DIRECTED 08/28/17 17:21 Knee wo Cont Rt [CT] Stat
[2017-08-28] MEDS ORDERED: HYDROmorphone 0.5 MG/0.5 ML SYRINGE IVPUSH ONE (16:03)
[2017-08-28] MEDS ORDERED: Sodium Chloride 0.9% 10 ML Syringe FLUSH PRN (16:03)
[2017-08-28] MEDS ORDERED: Ondansetron 4 MG/2 ML SDV IVPUSH ONE (16:04)
[2017-08-28] MEDS ORDERED: Acetaminophen/oxyCODONE 325-5 MG Tab PO ONE (16:10)
[2017-08-28] MEDS ORDERED: Promethazine 6.25 MG in Sodium Chloride 0.9% 50 ML IV PRN (22:01)
[2017-08-28] MEDS ORDERED: Acetaminophen 325 MG Tab PO PRN (22:01)
[2017-08-28] MEDS ORDERED: Ondansetron 4 MG/2 ML SDV IV PRN (22:01)
[2017-08-28] MEDS ORDERED: Albuterol/Ipratropium 3.0-0.5 MG/3 ML Neb Soln NEB PRN (22:01)
[2017-08-28] MEDS ORDERED: Docusate Sodium 100 MG Cap PO PRN (22:01)
[2017-08-28] MEDS ORDERED: Metoprolol Tartrate 5 MG/5 ML SDV IVPUSH PRN (22:01)
[2017-08-28] MEDS ORDERED: hydrALAZINE 20 MG/ML SDV IVPUSH PRN (22:01)
[2017-08-28] MEDS ORDERED: LORazepam 2 MG/ML SDV IV PRN (22:01)
[2017-08-28] MEDS ORDERED: Bisacodyl 5 MG Tab PO PRN (22:01)
[2017-08-28] MEDS ORDERED: LORazepam 2 MG/ML SDV IVPUSH PRN (22:01)
[2017-08-28] MEDS ORDERED: Polyethylene Glycol 3350 Powder 17 GM Packet PO PRN (22:01)
[2017-08-28] MEDS ORDERED: Temazepam 7.5 MG Cap PO PRN (22:01)
[2017-08-28] MEDS ORDERED: HYDROmorphone 0.5 MG/0.5 ML SYRINGE IVPUSH PRN (22:01)
[2017-08-28] MEDS ORDERED: Magnesium Hydroxide 400 MG/5 ML Susp 30 ML Cup PO PRN (22:01)
--- NOTE | 2017-08-28 22:01 | PCM.HP ---
H&P History of Present Illness - General Date of Service: 08/28/17 Admit Problem/Dx: Admission Diagnosis/Problem Admission Diagnosis/Problem Fracture of knee region Source of Information: Patient, Family, Old Records, Provider, RN Notes Reviewed History Limitations: Reports: Physical Impairment - History of Present Illness Initial Comments - Free Text/Narative: This is an 87-year-old elderly white female with past medical history of HTN, Atrial Fibrillation, on Xarelto, HLD, DM2, and OA/DJD who comes in for evaluation after difficulty with ambulation today. Per patient, she fell yesterday after she tripped over a rug. At that time she was not able to get up on her own. She denies hitting her head on her way down to the floor. When she was up, she had difficulty putting weight on her affected leg. She denies any prodromal symptoms. She reports pain and swelling associated with the affected leg. Patient denies any other acute issues. Her initial workup in ED shows a glucose of 189. Her UA is negative for urinary tract infection. Her right knee x-ray shows no obvious abnormal finding. Right knee CT scan report reads minimally depressed posterior tibial plateau fracture. Currently, we have no Ortho coverage however ED provider discussed case with on- call Ortho in [facility]. The recommendation is conservative management only. Patient is admitted for medical management of right knee fracture status post fall. She is CPR only. . Right Leg Pain Score (Numeric/FACES): 4 - Related Data Allergies/Adverse Reactions: Allergies Allergy/AdvReac Type Severity Reaction Status Date / Time No Known Allergies Allergy Verified 08/28/17 21:23 Home Medications: Home Meds Benazepril [Lotensin] 60 mg PO DAILY 11/04/16 [History] glipiZIDE [Glucotrol] 2.5 mg PO BID 11/04/16 [History] Rivaroxaban [Xarelto] 15 mg PO DAILY #30 tablet 11/05/16 [Rx] Albuterol [Ventolin HFA] 1 puff INH TID PRN 08/28/17 [History] Amiodarone [Cordarone] 200 mg PO DAILY 08/28/17 [History] Furosemide 40 mg PO BID 08/28/17 [History] Metoprolol Succinate 100 mg PO DAILY 08/28/17 [History] Calcium Carbonate [Calcium] 1 tab PO DAILY 08/29/17 [History] Fish Oil/[place]-3 Fatty Acids [Fish Oil] 1 tab PO DAILY 08/29/17 [History] Multivitamin/Iron/Folic Acid [Centrum Complete Multivit] 1 tab PO DAILY [History] Simvastatin [Zocor] 10 mg PO BEDTIME 08/29/17 [History] Ubidecarenone [Co Q-10] 1 tab PO DAILY 08/29/17 [History] Past Medical History Cardiovascular History: Reports: High Cholesterol, Hypertension 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 - Past Surgical History HEENT Surgical History: Reports: Cataract Surgery, Tonsillectomy GI Surgical History: Reports: Appendectomy, Cholecystectomy Female Surgical History: Reports: Hysterectomy Musculoskeletal Surgical History: Reports: Arthroscopic Procedure (right knee) Social & Family History - Family History Family Medical History: Noncontributory - Tobacco Use Smoking Status *Q: Never Smoker Second Hand Smoke Exposure: No - Caffeine Use Caffeine Use: Reports: Coffee Other Caffeine Use: one cup of coffee every morning Caffeine Use Comment: Has coffee in the morning - Alcohol Use Days Per Week of Alcohol Use: 1 Number of Drinks Per Day: 1 Total Drinks Per Week: 1 - Recreational Drug Use Recreational Drug Use: No - Living Situation & Occupation Living situation: Reports: , Alone Occupation: Retired H&P Review of Systems - Review of Systems: Review Of Systems: See Below General: Reports: Weakness. Denies: Fever, Chills, Malaise, Fatigue HEENT: Reports: No Symptoms Pulmonary: Denies: Shortness of Breath Cardiovascular: Reports: Edema. Denies: Chest Pain, Palpitations, Dyspnea on Exertion, Orthopnea, Lightheadedness, Syncope, Claudication, Blood Pressure Problem Gastrointestinal: Denies: Abdominal Pain, Decreased Appetite, Nausea, Vomiting Genitourinary: Reports: No Symptoms Musculoskeletal: Reports: Joint Pain (knee) Skin: Reports: Bruising. Denies: Cyanosis, Mottled, Diaphoresis, Erythema Psychiatric: Denies: Depression, Anxiety, Hallucinations, Suicidal Ideation, Homicidal Ideation Neurological: Reports: Difficulty Walking, Weakness, Gait Disturbance. Denies: Confusion, Dizziness, Headache, Numbness, Paresthesia, Pre-Existing Deficit, Seizure, Syncope, Tingling, Tremors, Trouble Speaking, Change in Speech Hematologic/Lymphatic: Reports: No Symptoms Immunologic: Reports: No Symptoms Exam - Exam Exam: See Below - Vital Signs Vital Signs: Last Vital Signs Temp 36.8 C 08/28/17 20:28 Pulse 53 L 08/28/17 20:28 Resp 18 08/28/17 20:28 BP 146/87 H 08/28/17 20:28 Pulse Ox 92 L 08/28/17 20:28 Weight: 79.832 kg - Exam General: Alert, Cooperative. No: Mild Distress HEENT: Conjunctiva Clear, EACs Clear, EOMI, Hearing Intact, Mucosa Moist & [place] , Nares Patent, Normal Nasal Septum, Posterior Pharynx Clear, Pupils Equal, Pupils Reactive Neck: Supple, Trachea Midline Lungs: Clear to Auscultation, Normal Respiratory Effort Cardiovascular: Irregular Rhythm, Systolic Murmur GI/Abdominal Exam: Normal Bowel Sounds, Soft, Non-Tender, No Organomegaly, No Distention, No Abnormal Bruit, No Mass (Female) Exam: Deferred Rectal (Female) Exam: Deferred Back Exam: Normal Inspection Extremities: Normal Inspection, Normal Range of Motion, Non-Tender, No Pedal Edema, Normal Capillary Refill, Other (right knee" with a knee brace/support device) Peripheral Pulses: 3+: Dorsalis Pedis (L), Dorsalis Pedis (R) Skin: Warm, Dry, Intact Neuro Extensive - Mental Status: Oriented x3, Normal Cognition, Memory Intact Neuro Extensive - Motor, Sensory, Reflexes: CN II-XII Intact, Abnormal Gait, Other (no sensory deficits on right lower extremity) Psychiatric: Alert, Normal Affect, Normal Mood - Patient Data Lab Results Last 24 hrs: Laboratory Results - last 24 hr 08/28/17 Range/Units 21:39 POC Glucose 189 H (83-110) mg/dL Result Diagrams: 08/29/17 05:10 08/29/17 05:10 *Q Meaningful Use (ADM) - VTE *Q VTE Criteria *Q: - Stroke *Q Stroke Criteria *Q: - AMI *Q AMI Criteria *Q: Problem List Initiated/Reviewed/Updated: Yes Assessment/Plan Comment:: Assessment/Plan: Acute: Right Knee Fx - CT scan: Minimally depressed posterior tibial plateau fracture - 2/2 Mechanical Fall; tripped over a rug - Case was discussed Ortho in [place] (Dr. Franco), he felt conservative treatment to manage mild knee fracture. He recommended non-weight bearing for the first 6 weeks and partial weight bearing for the next 6 weeks. Further localization will be done outpatient - Pain control - PT/OT consult - Ortho follow up outpatient S/p Fall - 2/2 Mechanical Fall - Tripped over a rug; no issues with vision or lighting - Denies any prodromal symptoms Chronic: HTN Atrial Fibrillation, on Xarelto, HR controlled HLD DM2 OA/DJD Plan: Admit to the floor Resume Home Meds High Fall Risk PT/OT consult SW/CM for d/c planning She may likely stay 3 night for SNF/Rehab placement Code status: CPR only
[2017-08-28] MEDS ORDERED: 50% Dextrose in Water 50 ML Syringe IVPUSH PRN (22:07)
[2017-08-28] MEDS: Insulin Aspart 100 Units/ML 3 ML Pen SUBCUT SCH (23:15)
[2017-08-28] MEDS: Acetaminophen/oxyCODONE 325-5 MG Tab PO PRN (23:17)
[2017-08-29] MEDS: Acetaminophen/oxyCODONE 325-5 MG Tab PO PRN ×2 (06:38→16:29)
[2017-08-29] MEDS: Furosemide 40 MG Tab PO SCH ×2 (06:40→16:31)
[2017-08-29] MEDS ORDERED: Metoprolol Succinate 50 MG Tab.ER PO SCH (09:00)
[2017-08-29] MEDS ORDERED: Potassium Chloride 20 MEQ Tab.ER PO ONE (09:30)
[2017-08-29] MEDS: glipiZIDE 5 MG Tab PO SCH ×2 (09:35→20:26)
[2017-08-29] MEDS: Amiodarone 200 MG Tab PO SCH (09:39)
[2017-08-29] MEDS: Rivaroxaban 10 MG Tab PO SCH (09:39)
[2017-08-29] MEDS: Insulin Aspart 100 Units/ML 3 ML Pen SUBCUT SCH ×2 (13:13→22:38)
[2017-08-29] MEDS: Sodium Chloride 0.9% 1,000 ML IV SCH (16:30)
--- NOTE | 2017-08-29 16:52 | CR ---
Right knee: Five views of the right knee were obtained. Comparison: Subsequent CT knee exam performed later on the same day, no previous knee exam is available. Findings: Moderate to severe medial joint space narrowing is noted. Medial osteophytes are seen. Slight degenerative spurring is noted within the patella. Joint effusion is seen. Fracture that was noted on subsequent CT exam within the posterior tibia is poorly seen on this exam. Vascular calcification is noted. Impression: 1. Degenerative change and joint effusion. 2. Fracture seen on subsequent CT exam is poorly identified on this study. Diagnostic code #3
--- NOTE | 2017-08-29 19:08 | PCM.PN ---
- General Info Date of Service: 08/29/17 Admission Dx/Problem (Free Text): Admission Diagnosis/Problem Admission Diagnosis/Problem Fracture of knee region Subjective Update: Follow up Functional Status: Reports: Pain Controlled, Tolerating Diet, Urinating. Denies : Ambulating Pain Score: 4 - Review of Systems General: Denies: Fever, Weakness, Fatigue, Malaise, Chills HEENT: Reports: No Symptoms Pulmonary: Denies: Shortness of Breath Cardiovascular: Denies: Chest Pain Gastrointestinal: Denies: Abdominal Pain, Nausea, Vomiting Genitourinary: Reports: No Symptoms Musculoskeletal: Reports: No Symptoms, Joint Pain Neurological: Reports: Difficulty Walking, Gait Disturbance. Denies: Confusion , Pre-Existing Deficit, Weakness Psychiatric: Denies: Depression, Anxiety, Agitation, Hallucinations Systems Review Comment:: No overnight or acute issues. Her pain is controlled and doing relatively well. She has no complaints. - Patient Data Vitals - Most Recent: Last Vital Signs Temp 37.1 C 08/29/17 15:06 Pulse 50 L 08/29/17 15:06 Resp 18 08/29/17 15:06 BP 117/44 L 08/29/17 15:06 Pulse Ox 91 L 08/29/17 15:06 Weight - Most Recent: 79.832 kg I&O - Last 24 Hours: Intake & Output 08/29/17 08/29/17 08/29/17 06:59 14:59 22:59 Intake Total 300 1420 Output Total 300 Balance 300 1120 Lab Results Last 24 Hours: Laboratory Results - last 24 hr 08/28/17 08/29/17 08/29/17 Range/Units 21:39 00:28 05:10 WBC 13.62 H (3.98-10.04) K/mm3 RBC 3.61 L (3.98-5.22) M/mm3 Hgb 11.3 (11.2-15.7) gm/L Hct 35.2 (34.1-44.9) % MCV 97.5 H (79.4-94.8) fl MCH 31.3 (25.6-32.2) pg MCHC 32.1 L (32.2-35.5) g/dl RDW Std Deviation 53.5 H (36.4-46.3) fL Plt Count 252 (182-369) K/mm3 MPV 10.1 (9.4-12.3) fl Neut % (Auto) 61.5 (34.0-71.1) % Lymph % (Auto) 18.2 L (19.3-51.7) % Titus % (Auto) 18.1 H (4.7-12.5) % Eos % (Auto) 1.5 (0.7-5.8) Baso % (Auto) 0.3 (0.1-1.2) % Neut # (Auto) 8.36 H (1.56-6.13) K/mm3 Lymph # (Auto) 2.48 (1.18-3.74) K/mm3 Titus # (Auto) 2.47 H (0.24-0.36) K/mm3 Eos # (Auto) 0.21 (0.04-0.36) K/mm3 Baso # (Auto) 0.04 (0.01-0.08) K/mm3 Manual Slide Review Abnormal smear Sodium (136-145) mEq/L Potassium (3.5-5.1) mEq/L Chloride (98-107) mEq/L Carbon Dioxide (21-32) mEq/L Anion Gap (5-15) BUN (7-18) mg/dL Creatinine (0.55-1.02) mg/dL Est Cr Clr Drug Dosing mL/min Estimated GFR (MDRD) (>60) mL/min BUN/Creatinine Ratio (14-18) Glucose (83-115) mg/dL POC Glucose 189 H (83-110) mg/dL Calcium (8.5-10.1) mg/dL Magnesium (1.8-2.4) mg/dl Urine Color Dark yellow (Yellow) Urine Appearance Slt cloudy H (Clear) Urine pH 5.5 (5.0-8.0) Ur Specific [place] 1.025 (1.005-1.030) Urine Protein 2+ H (Negative) Urine Glucose (UA) Negative (Negative) Urine Ketones Trace H (Negative) Urine Occult Blood 3+ H (Negative) Urine Nitrite Negative (Negative) Urine Bilirubin 1+ H (Negative) Urine Urobilinogen 1.0 (0.2-1.0) Ur Leukocyte Esterase Negative (Negative) Urine RBC Too numerous to cnt H (0-5) /hpf Urine WBC 0-5 (0-5) /hpf Ur Epithelial Cells 0-5 (0-5) /hpf Urine Bacteria Few (FEW) /hpf Urine Mucus Not seen (FEW) /hpf 08/29/17 Range/Units 05:10 WBC (3.98-10.04) K/mm3 RBC (3.98-5.22) M/mm3 Hgb (11.2-15.7) gm/L Hct (34.1-44.9) % MCV (79.4-94.8) fl MCH (25.6-32.2) pg MCHC (32.2-35.5) g/dl RDW Std Deviation (36.4-46.3) fL Plt Count (182-369) K/mm3 MPV (9.4-12.3) fl Neut % (Auto) (34.0-71.1) % Lymph % (Auto) (19.3-51.7) % Titus % (Auto) (4.7-12.5) % Eos % (Auto) (0.7-5.8) Baso % (Auto) (0.1-1.2) % Neut # (Auto) (1.56-6.13) K/mm3 Lymph # (Auto) (1.18-3.74) K/mm3 Titus # (Auto) (0.24-0.36) K/mm3 Eos # (Auto) (0.04-0.36) K/mm3 Baso # (Auto) (0.01-0.08) K/mm3 Manual Slide Review Sodium 137 (136-145) mEq/L Potassium 3.4 L (3.5-5.1) mEq/L Chloride 100 (98-107) mEq/L Carbon Dioxide 28 (21-32) mEq/L Anion Gap 12.4 (5-15) BUN 32 H (7-18) mg/dL Creatinine 1.5 H (0.55-1.02) mg/dL Est Cr Clr Drug Dosing 22.39 mL/min Estimated GFR (MDRD) 33 (>60) mL/min BUN/Creatinine Ratio 21.3 H (14-18) Glucose 70 L (83-115) mg/dL POC Glucose (83-110) mg/dL Calcium 8.7 (8.5-10.1) mg/dL Magnesium 1.9 (1.8-2.4) mg/dl Urine Color (Yellow) Urine Appearance (Clear) Urine pH (5.0-8.0) Ur Specific [place] (1.005-1.030) Urine Protein (Negative) Urine Glucose (UA) (Negative) Urine Ketones (Negative) Urine Occult Blood (Negative) Urine Nitrite (Negative) Urine Bilirubin (Negative) Urine Urobilinogen (0.2-1.0) Ur Leukocyte Esterase (Negative) Urine RBC (0-5) /hpf Urine WBC (0-5) /hpf Ur Epithelial Cells (0-5) /hpf Urine Bacteria (FEW) /hpf Urine Mucus (FEW) /hpf Med Orders - Current: Current Medications Acetaminophen (Tylenol) 650 mg PO Q4H PRN PRN Reason: Pain (Mild 1-3)/fever Albuterol/Ipratropium (Duoneb 3.0-0.5 Mg/3 Ml) 3 ml NEB Q4H PRN PRN Reason: Shortness Of Breath/wheezing Amiodarone HCl (Cordarone) 200 mg PO DAILY [facility] Last Admin: 08/29/17 09:39 Dose: 200 mg Benazepril HCl (Lotensin) 60 mg PO DAILY [facility] Last Admin: 08/29/17 13:13 Dose: Not Given Bisacodyl (Dulcolax) 5 mg PO DAILY PRN PRN Reason: Constipation Dextrose/Water (Dextrose 50% In Water) 50 ml IVPUSH ASDIRECTED PRN PRN Reason: Hypoglycemia Docusate Sodium (Colace) 100 mg PO BID PRN PRN Reason: Constipation Furosemide (Lasix) 40 mg PO BIDDIURETIC [facility] Last Admin: 08/29/17 16:31 Dose: Not Given Glipizide (Glucotrol) 2.5 mg PO BID [facility] Last Admin: 08/29/17 09:35 Dose: 2.5 mg Hydralazine HCl (Apresoline) 10 mg IVPUSH Q4H PRN PRN Reason: Hypertension Hydromorphone HCl (Dilaudid) 0.25 mg IVPUSH Q2H PRN PRN Reason: Pain (severe 7-10) Promethazine HCl 6.25 mg/ (Sodium Chloride) 50.25 mls @ 100 mls/hr IV Q6H PRN PRN Reason: Nausea/Vomiting Sodium Chloride (Normal Saline) 1,000 mls @ 50 mls/hr IV ASDIRECTED [facility] Last Admin: 08/29/17 16:30 Dose: 50 mls/hr Insulin Aspart (Novolog) 0 unit SUBCUT BID [facility] PRN Reason: Protocol Last Admin: 08/29/17 13:13 Dose: Not Given Lorazepam (Ativan) 2 mg IVPUSH Q4H PRN PRN Reason: Seizures Lorazepam (Ativan) 0.25 mg IV Q6H PRN PRN Reason: Anxiety Magnesium Hydroxide (Milk Of Magnesia) 30 ml PO Q12H PRN PRN Reason: Constipation Magnesium Sulfate (Pharmacy To Dose - Magnesium Replacement) 1 dose .XX ASDIRECTED [facility] Metoprolol Succinate (Toprol Xl) 100 mg PO DAILY [facility] Last Admin: 08/29/17 13:14 Dose: Not Given Metoprolol Tartrate (Lopressor) 5 mg IVPUSH Q4H PRN PRN Reason: Tachycardia Ondansetron HCl (Zofran) 4 mg IV Q6H PRN PRN Reason: Nausea/Vomiting Oxycodone/Acetaminophen (Percocet 325-5 Mg) 1 tab PO Q4H PRN PRN Reason: Pain (moderate 4-6) Last Admin: 08/29/17 16:29 Dose: 1 tab Polyethylene Glycol (Miralax) 17 gm PO DAILY PRN PRN Reason: Constipation Potassium Chloride (Pharmacy To Dose - Potassium Replacement) 1 dose .XX ASDIRECTED [facility] Rivaroxaban (Xarelto) 15 mg PO DAILY [facility] Last Admin: 08/29/17 09:39 Dose: 15 mg Senna/Docusate Sodium (Senna Plus) 1 tab PO BID PRN PRN Reason: Constipation Temazepam (Restoril) 7.5 mg PO BEDTIME PRN PRN Reason: Sleep Discontinued Medications Hydromorphone HCl (Dilaudid) 0.5 mg IVPUSH ONETIME ONE Stop: 08/28/17 16:04 Last Admin: 08/28/17 16:24 Dose: Not Given Ondansetron HCl (Zofran) 4 mg IVPUSH ONETIME ONE Stop: 08/28/17 16:05 Last Admin: 08/28/17 16:24 Dose: Not Given Oxycodone/Acetaminophen (Percocet 325-5 Mg) 1 tab PO ONETIME ONE Stop: 08/28/17 16:11 Last Admin: 08/28/17 16:15 Dose: 1 tab Potassium Chloride (Klor-Con M20) 40 meq PO ONETIME ONE Stop: 08/29/17 09:31 Last Admin: 08/29/17 09:39 Dose: 40 meq Sodium Chloride (Saline Flush) 10 ml FLUSH ASDIRECTED PRN PRN Reason: Keep Vein Open - Exam General: Alert, Oriented, Cooperative, No Acute Distress HEENT: Pupils Equal, Pupils Reactive, EOMI, Mucous Membr. Moist/Felt Neck: Supple, Trachea Midline, No JVD Lungs: Normal Respiratory Effort, Decreased Breath Sounds Cardiovascular: Regular Rate, Regular Rhythm, Murmurs GI/Abdominal Exam: Normal Bowel Sounds, Soft, Non-Tender, No Organomegaly, No Distention, No Abnormal Bruit, No Mass (Female) Exam: Deferred Back Exam: Normal Inspection Extremities: Normal Inspection, Normal Range of Motion, Non-Tender, No Pedal Edema, Normal Capillary Refill, Other (right knee: edema with knee brace on ) Peripheral Pulses: 2+: Posterior Tibial (L), Posterior Tibial (R), Dorsalis Pedis (L), Dorsalis Pedis (R) Skin: Warm, Dry, Intact Neurological: No New Focal Deficit. No: Normal Gait Psy/Mental Status: Alert, Normal Affect, Normal Mood - Problem List Review Problem List Initiated/Reviewed/Updated: Yes - My Orders Last 24 Hours: My Active Orders 08/28/17 22:01 Height and Weight [RC] 04 Oxygen Therapy [RC] PRN Up With Assistance [RC] ASDIRECTED Up ad Jesi [RC] ASDIRECTED VTE/DVT Education [RC] DAILY Vital Signs [RC] Q4HR Consult to Case Management [CONS] Routine Consult to Sql Engineer [CONS] Routine Consult to Spiritual Care [CONS] Routine OT Evaluation and Treatment [CONS] Routine PT Evaluation and Treatment [CONS] Routine Acetaminophen [Tylenol] 650 mg PO Q4H PRN Acetaminophen/oxyCODONE [Percocet 325-5 MG] 1 tab PO Q4H PRN Albuterol/Ipratropium [DuoNeb 3.0-0.5 MG/3 ML] 3 ml NEB Q4H PRN Bisacodyl [Dulcolax] 5 mg PO DAILY PRN Docusate Sodium [Colace] 100 mg PO BID PRN Docusate Sodium/Sennosides [Senna Plus] 1 tab PO BID PRN HYDROmorphone [Dilaudid] 0.25 mg IVPUSH Q2H PRN LORazepam [Ativan] 0.25 mg IV Q6H PRN LORazepam [Ativan] 2 mg IVPUSH Q4H PRN Magnesium Hydroxide [Milk of Magnesia] 30 ml PO Q12H PRN Metoprolol Tartrate [Lopressor] 5 mg IVPUSH Q4H PRN Ondansetron [Zofran] 4 mg IV Q6H PRN Polyethylene Glycol 3350 [MiraLAX] 17 gm PO DAILY PRN Promethazine [Phenergan] 6.25 mg Sodium Chloride 0.9% [Normal Saline] 50 ml IV Q6H Temazepam [Restoril] 7.5 mg PO BEDTIME PRN hydrALAZINE [Apresoline] 10 mg IVPUSH Q4H PRN Resuscitation Status Routine 08/28/17 22:02 Intake and Output [RC] 04,16 08/28/17 22:04 RT Aerosol Therapy [RC] ASDIRECTED 08/28/17 22:07 Blood Glucose Check, Bedside [RC] 2100,0700 Dextrose 50% in Water 50 ml IVPUSH ASDIRECTED PRN 08/28/17 22:08 Precautions [COMM] Routine 08/28/17 22:15 Insulin Aspart [NovoLOG] See Protocol SUBCUT BID Magnesium Rep Pharmacy to Dose [Pharmacy to Dose - Magnesium Replacement] 1 dose .XX ASDIRECTED Potassium Rep Pharmacy to Dose [Pharmacy to Dose - Potassium Replacement] 1 dose .XX ASDIRECTED 08/29/17 00:28 CULTURE URINE [RM] Stat 08/29/17 06:00 Furosemide [Lasix] 40 mg PO BIDDIURETIC 08/29/17 08:40 Patient Status [ADT] Routine 08/29/17 09:00 Amiodarone [Cordarone] 200 mg PO DAILY Benazepril [Lotensin] 60 mg PO DAILY Metoprolol Succinate [Toprol XL] 100 mg PO DAILY Rivaroxaban [Xarelto] 15 mg PO DAILY glipiZIDE [Glucotrol] 2.5 mg PO BID 08/29/17 10:45 Sodium Chloride 0.9% [Normal Saline] 1,000 ml IV ASDIRECTED 08/31/17 05:11 BMP [BASIC METABOLIC PANEL,BMP] [CHEM] AM CBC WITH AUTO DIFF [HEME] AM MG [MAGNESIUM] [CHEM] AM 09/01/17 05:11 BMP [BASIC METABOLIC PANEL,BMP] [CHEM] AM CBC WITH AUTO DIFF [HEME] AM MG [MAGNESIUM] [CHEM] AM 09/02/17 05:11 BMP [BASIC METABOLIC PANEL,BMP] [CHEM] AM CBC WITH AUTO DIFF [HEME] AM MG [MAGNESIUM] [CHEM] AM - Plan Plan:: Assessment/Plan: Acute: Right Knee Fx - CT scan: Minimally depressed posterior tibial plateau fracture - 2/2 Mechanical Fall; tripped over a rug - Case was discussed Ortho in [place] (Dr. Franco), he felt conservative treatment to manage mild knee fracture. He recommended non-weight bearing for the first 6 weeks and partial weight bearing for the next 6 weeks. Further localization will be done outpatient - Pain is controlled - Awaiting PT/OT consultation - Ortho follow up outpatient S/p Fall - 2/2 Mechanical Fall - Tripped over a rug; no issues with vision or lighting - Denies any prodromal symptoms Bradycardia - HR in the upper 40s-50s - Unsure if contributory to her recent fall - However she reports no symptoms - She is on Toprol XL 100 mg po Daily; will switch to Lopressor 50 mg po BID Mild Hypokalemia - K 3.4 - 2/2 lasix use Chronic: HTN Atrial Fibrillation, on Xarelto, HR controlled HLD DM2 OA/DJD Plan: She is clinically stable Resume Home Meds High Fall Risk PT/OT consult SW/CM for d/c planning She may likely stay 3 night for SNF/Rehab placement Code status: CPR only
[2017-08-30] MEDS: Furosemide 40 MG Tab PO SCH ×2 (06:28→15:24)
--- NOTE | 2017-08-30 08:26 | PCM.PN ---
- General Info Date of Service: 08/30/17 Admission Dx/Problem (Free Text): Admission Diagnosis/Problem Admission Diagnosis/Problem Fracture of knee region Subjective Update: In to see Annie. She is lying in bed. She is doing quite well. Pain is a 7/10 however she just received a pain pill. She has a polar pack which she has been using. I suggested she try that again. Primary nurse will change the ice water and apply. No other concerns. Nursing has no concerns. Labs look good. Functional Status: Reports: Pain Controlled, Tolerating Diet, Urinating. Denies : Ambulating, New Symptoms Pain Score: 7 - Review of Systems General: Reports: No Symptoms. Denies: Fever, Weakness, Fatigue, Malaise HEENT: Reports: No Symptoms Pulmonary: Reports: No Symptoms. Denies: Shortness of Breath, Cough, Sputum Cardiovascular: Reports: No Symptoms. Denies: Chest Pain, Palpitations, Dyspnea on Exertion Gastrointestinal: Reports: No Symptoms. Denies: Abdominal Pain, Constipation, Diarrhea, Nausea Genitourinary: Reports: No Symptoms Musculoskeletal: Reports: No Symptoms Skin: Reports: No Symptoms Neurological: Reports: No Symptoms Psychiatric: Reports: No Symptoms - Patient Data Vitals - Most Recent: Last Vital Signs Temp 99.0 F 08/30/17 04:09 Pulse 58 L 08/30/17 04:09 Resp 16 08/30/17 04:09 BP 122/49 L 08/30/17 04:09 Pulse Ox 92 L 08/30/17 04:09 Weight - Most Recent: 179 lb 3.2 oz I&O - Last 24 Hours: Intake & Output 08/29/17 08/30/17 08/30/17 22:59 06:59 14:59 Intake Total 1420 1161 Output Total 300 1400 Balance 1120 -239 Lab Results Last 24 Hours: Laboratory Results - last 24 hr 08/29/17 08/29/17 08/30/17 Range/Units 06:50 20:32 06:22 POC Glucose 74 L 108 65 L (83-110) mg/dL Med Orders - Current: Current Medications Acetaminophen (Tylenol) 650 mg PO Q4H PRN PRN Reason: Pain (Mild 1-3)/fever Albuterol/Ipratropium (Duoneb 3.0-0.5 Mg/3 Ml) 3 ml NEB Q4H PRN PRN Reason: Shortness Of Breath/wheezing Amiodarone HCl (Cordarone) 200 mg PO DAILY [facility] Last Admin: 08/29/17 09:39 Dose: 200 mg Benazepril HCl (Lotensin) 60 mg PO DAILY [facility] Last Admin: 08/29/17 13:13 Dose: Not Given Bisacodyl (Dulcolax) 5 mg PO DAILY PRN PRN Reason: Constipation Calcium Carbonate/Glycine (Tums) 500 mg PO DAILY [facility] Dextrose/Water (Dextrose 50% In Water) 50 ml IVPUSH ASDIRECTED PRN PRN Reason: Hypoglycemia Docusate Sodium (Colace) 100 mg PO BID PRN PRN Reason: Constipation Fish Oil (Fish Oil) 1 gm PO DAILY [facility] Furosemide (Lasix) 40 mg PO BIDDIURETIC [facility] Last Admin: 08/30/17 06:28 Dose: 40 mg Glipizide (Glucotrol) 2.5 mg PO BID [facility] Last Admin: 08/29/17 20:26 Dose: 2.5 mg Hydralazine HCl (Apresoline) 10 mg IVPUSH Q4H PRN PRN Reason: Hypertension Hydromorphone HCl (Dilaudid) 0.25 mg IVPUSH Q2H PRN PRN Reason: Pain (severe 7-10) Promethazine HCl 6.25 mg/ (Sodium Chloride) 50.25 mls @ 100 mls/hr IV Q6H PRN PRN Reason: Nausea/Vomiting Sodium Chloride (Normal Saline) 1,000 mls @ 50 mls/hr IV ASDIRECTED [facility] Last Admin: 08/29/17 16:30 Dose: 50 mls/hr Insulin Aspart (Novolog) 0 unit SUBCUT BID [facility] PRN Reason: Protocol Last Admin: 08/29/17 22:38 Dose: Not Given Lorazepam (Ativan) 2 mg IVPUSH Q4H PRN PRN Reason: Seizures Lorazepam (Ativan) 0.25 mg IV Q6H PRN PRN Reason: Anxiety Magnesium Hydroxide (Milk Of Magnesia) 30 ml PO Q12H PRN PRN Reason: Constipation Magnesium Sulfate (Pharmacy To Dose - Magnesium Replacement) 1 dose .XX ASDIRECTED [facility] Metoprolol Tartrate (Lopressor) 5 mg IVPUSH Q4H PRN PRN Reason: Tachycardia Metoprolol Tartrate (Lopressor) 50 mg PO Q12HR [facility] Ondansetron HCl (Zofran) 4 mg IV Q6H PRN PRN Reason: Nausea/Vomiting Oxycodone/Acetaminophen (Percocet 325-5 Mg) 1 tab PO Q4H PRN PRN Reason: Pain (moderate 4-6) Last Admin: 08/29/17 16:29 Dose: 1 tab Polyethylene Glycol (Miralax) 17 gm PO DAILY PRN PRN Reason: Constipation Potassium Chloride (Pharmacy To Dose - Potassium Replacement) 1 dose .XX ASDIRECTED [facility] Rivaroxaban (Xarelto) 15 mg PO DAILY [facility] Last Admin: 08/29/17 09:39 Dose: 15 mg Senna/Docusate Sodium (Senna Plus) 1 tab PO BID PRN PRN Reason: Constipation Simvastatin (Zocor) 10 mg PO BEDTIME [facility]OL[facility] Temazepam (Restoril) 7.5 mg PO BEDTIME PRN PRN Reason: Sleep Vit A/Vit C/Vit E/Selen/Cu/Zn/Lutei (Icaps Mv) 1 tab PO DAILY [facility] Discontinued Medications Hydromorphone HCl (Dilaudid) 0.5 mg IVPUSH ONETIME ONE Stop: 08/28/17 16:04 Last Admin: 08/28/17 16:24 Dose: Not Given Metoprolol Succinate (Toprol Xl) 100 mg PO DAILY [facility] Last Admin: 08/29/17 13:14 Dose: Not Given Non-Formulary Medication (Ubidecarenone [Co Q-10]) 1 tab PO DAILY [facility] Ondansetron HCl (Zofran) 4 mg IVPUSH ONETIME ONE Stop: 08/28/17 16:05 Last Admin: 08/28/17 16:24 Dose: Not Given Oxycodone/Acetaminophen (Percocet 325-5 Mg) 1 tab PO ONETIME ONE Stop: 08/28/17 16:11 Last Admin: 08/28/17 16:15 Dose: 1 tab Potassium Chloride (Klor-Con M20) 40 meq PO ONETIME ONE Stop: 08/29/17 09:31 Last Admin: 08/29/17 09:39 Dose: 40 meq Sodium Chloride (Saline Flush) 10 ml FLUSH ASDIRECTED PRN PRN Reason: Keep Vein Open - Exam Quality Assessment: DVT Prophylaxis General: Alert, Oriented, Cooperative, No Acute Distress HEENT: Pupils Equal, Pupils Reactive, EOMI, Mucous Membr. Moist/Enetai Neck: Supple, Trachea Midline, No JVD Lungs: Clear to Auscultation, Normal Respiratory Effort Cardiovascular: Regular Rate, Regular Rhythm GI/Abdominal Exam: Normal Bowel Sounds, Soft, Non-Tender, No Organomegaly, No Distention, No Abnormal Bruit, No Mass, Pelvis Stable (Female) Exam: Deferred Extremities: Normal Inspection, Normal Range of Motion, Non-Tender, No Pedal Edema, Normal Capillary Refill Peripheral Pulses: 2+: Radial (L), Radial (R), Posterior Tibial (L), Posterior Tibial (R), Dorsalis Pedis (L), Dorsalis Pedis (R) Skin: Warm, Dry, Intact Neurological: No New Focal Deficit Psy/Mental Status: Alert, Normal Affect, Normal Mood - Problem List & Annotations (1) Posterior tibial plateau fracture SNOMED Code(s): 337749677 Code(s): S82.143A - DISPLACED BICONDYLAR FRACTURE OF UNSP TIBIA, INIT Status: Acute Priority: High Current Visit: Yes Qualifiers: Encounter type: initial encounter Fracture type: closed Laterality: right Qualified Code(s): S82.141A - Displaced bicondylar fracture of right tibia, initial encounter for closed fracture (2) HTN (hypertension) SNOMED Code(s): 39482856 Code(s): I10 - ESSENTIAL (PRIMARY) HYPERTENSION Status: Chronic Priority : Low Current Visit: No Qualifiers: Hypertension type: unspecified Qualified Code(s): I10 - Essential (primary ) hypertension (3) A-fib SNOMED Code(s): 43982749 Code(s): I48.91 - UNSPECIFIED ATRIAL FIBRILLATION Status: Chronic Priority: Medium Current Visit: Yes Qualifiers: Atrial fibrillation type: chronic Qualified Code(s): I48.2 - Chronic atrial fibrillation (4) HLD (hyperlipidemia) SNOMED Code(s): 95051916 Code(s): E78.5 - HYPERLIPIDEMIA, UNSPECIFIED Status: Chronic Priority: Low Current Visit: No Qualifiers: Hyperlipidemia type: unspecified Qualified Code(s): E78.5 - Hyperlipidemia , unspecified (5) Arthritis SNOMED Code(s): 4150278 Code(s): M19.90 - UNSPECIFIED OSTEOARTHRITIS, UNSPECIFIED SITE Status: Chronic Priority: Low Current Visit: No (6) Type II diabetes mellitus SNOMED Code(s): 88292523 Code(s): E11.9 - TYPE 2 DIABETES MELLITUS WITHOUT COMPLICATIONS Status: Chronic Priority: Medium Current Visit: Yes Qualifiers: Diabetes mellitus complication status: without complication - Problem List Review Problem List Initiated/Reviewed/Updated: Yes - Plan Plan:: Assessment/Plan: Acute: Right Knee Fx - CT scan: Minimally depressed posterior tibial plateau fracture - 2/2 Mechanical Fall; tripped over a rug - Case was discussed Ortho in [place] (Dr. Franco), he felt conservative treatment to manage mild knee fracture. He recommended non-weight bearing for the first 6 weeks and partial weight bearing for the next 6 weeks. Further localization will be done outpatient - Pain is controlled - PT/OT consultation - Ortho follow up outpatient S/p Fall - 2/2 Mechanical Fall - Tripped over a rug; no issues with vision or lighting - Denies any prodromal symptoms Bradycardia - HR in the upper 40s-50s - Unsure if contributory to her recent fall - However she reports no symptoms - She is on Toprol XL 100 mg po Daily; will switch to Lopressor 50 mg po BID Mild Hypokalemia - K 3.4 - 2/2 lasix use - Supplement and monitor Chronic: HTN Atrial Fibrillation, on Xarelto, HR controlled HLD DM2 OA/DJD Plan: She is clinically stable Resume Home Meds High Fall Risk PT/OT consult SW/CM for d/c planning She may likely stay 3 night for SNF/Rehab placement Code status: CPR only
[2017-08-30] MEDS ORDERED: Non-Formulary Medication 1 Each (Ubidecarenone [Co Q-10] 1 TAB) PO SCH (09:00)
--- NOTE | 2017-08-30 09:39 | CT ---
CT right knee Technique: Multiple axial sections were obtained through the right knee. Comparison: Previous knee radiograph performed earlier on same day (4:08 PM). Findings: Mildly displaced fracture is identified off the posterior mid tibia. Fracture fragment measures about 1.3 cm and is displaced up to 5.4 mm. Degenerative change is seen with medial joint space narrowing within the knee. Osteophytes are also noted off the medial knee. Degenerative cysts are seen anteriorly within both medial and lateral compartments involving the femur. Joint effusion is seen. No additional fracture is identified. Impression: 1. Small fracture fragment off the posterior mid tibia as noted above. 2. Degenerative change and joint effusion is seen. Diagnostic code #3 Agree with preliminary report issued by [facility] ([facility] preliminary report dictated on 08/28/17, 7:19 PM Central Time) [facility]
[2017-08-30] MEDS: Amiodarone 200 MG Tab PO SCH (09:56)
[2017-08-30] MEDS: Calcium Carbonate 500 MG Tab.Chew PO SCH (09:57)
[2017-08-30] MEDS: Multivitamins with Minerals/Folic Acid/Lutein/Zeaxanth Tab PO SCH (09:57)
[2017-08-30] MEDS: Metoprolol Tartrate 50 MG Tab PO SCH ×2 (09:57→21:56)
[2017-08-30] MEDS: Fish Oil/Omega-3 Fatty Acids 1 Gm Cap PO SCH (09:57)
[2017-08-30] MEDS: Rivaroxaban 10 MG Tab PO SCH (09:58)
[2017-08-30] MEDS: glipiZIDE 5 MG Tab PO SCH ×2 (09:58→21:57)
[2017-08-30] MEDS: Insulin Aspart 100 Units/ML 3 ML Pen SUBCUT SCH ×2 (10:02→21:58)
[2017-08-30] MEDS: Sodium Chloride 0.9% 1,000 ML IV SCH (10:03)
[2017-08-30] MEDS: Acetaminophen/oxyCODONE 325-5 MG Tab PO PRN ×2 (15:30→21:50)
[2017-08-30] MEDS: Simvastatin 10 MG Tab PO SCH (21:55)
[2017-08-31] MEDS: Acetaminophen/oxyCODONE 325-5 MG Tab PO PRN ×5 (02:10→20:27)
[2017-08-31] MEDS ORDERED: Potassium Chloride 10% 20 MEQ/15 ML Soln 30 ML UD Cup PO ONE (04:49)
[2017-08-31] MEDS: Furosemide 40 MG Tab PO SCH ×2 (05:15→15:16)
[2017-08-31] MEDS: Sodium Chloride 0.9% 1,000 ML IV SCH (06:23)
[2017-08-31] MEDS: Insulin Aspart 100 Units/ML 3 ML Pen SUBCUT SCH ×2 (09:03→22:56)
[2017-08-31] MEDS: glipiZIDE 5 MG Tab PO SCH ×2 (09:04→09:12)
[2017-08-31] MEDS: Fish Oil/Omega-3 Fatty Acids 1 Gm Cap PO SCH (09:05)
[2017-08-31] MEDS: Calcium Carbonate 500 MG Tab.Chew PO SCH (09:05)
[2017-08-31] MEDS: Multivitamins with Minerals/Folic Acid/Lutein/Zeaxanth Tab PO SCH (09:06)
[2017-08-31] MEDS: Rivaroxaban 10 MG Tab PO SCH (09:07)
[2017-08-31] MEDS: Amiodarone 200 MG Tab PO SCH (09:12)
[2017-08-31] MEDS: Metoprolol Tartrate 50 MG Tab PO SCH (09:13)
--- NOTE | 2017-08-31 09:35 | PCM.PN ---
- General Info Date of Service: 08/31/17 Admission Dx/Problem (Free Text): Admission Diagnosis/Problem Admission Diagnosis/Problem Fracture of knee region Subjective Update: into see Annie. She is sitting in a chair. She is doing quite well. She reports pain is 7 out of 10 however she is due for pain pill. She has no concerns. Nursing did note that her blood sugars were quite low today. She is on glipizide twice a day and we will change this to daily in the morning. She has been eating very well. Plan is to discharge tomorrow to SNF. Functional Status: Reports: Pain Controlled, Tolerating Diet, Ambulating, Urinating. Denies: New Symptoms - Review of Systems General: Reports: No Symptoms. Denies: Fever, Weakness, Fatigue HEENT: Reports: No Symptoms Pulmonary: Reports: No Symptoms. Denies: Shortness of Breath, Cough, Wheezing Cardiovascular: Reports: No Symptoms. Denies: Chest Pain, Dyspnea on Exertion, Edema Gastrointestinal: Reports: No Symptoms. Denies: Abdominal Pain, Constipation, Diarrhea, Nausea, Vomiting Genitourinary: Reports: No Symptoms Musculoskeletal: Reports: Joint Pain (knee ) Skin: Reports: No Symptoms Neurological: Reports: No Symptoms Psychiatric: Reports: No Symptoms - Patient Data Vitals - Most Recent: Last Vital Signs Temp 98.1 F 08/31/17 07:57 Pulse 54 L 08/31/17 09:13 Resp 20 08/31/17 07:57 BP 126/62 08/31/17 09:13 Pulse Ox 91 L 08/31/17 07:57 Weight - Most Recent: 177 lb I&O - Last 24 Hours: Intake & Output 08/30/17 08/31/17 08/31/17 22:59 06:59 14:59 Intake Total 1820 1273 Output Total 2300 1800 Balance -480 -527 Lab Results Last 24 Hours: Laboratory Results - last 24 hr 08/30/17 08/30/17 08/31/17 Range/Units 09:55 21:42 05:19 WBC (3.98-10.04) K/mm3 RBC (3.98-5.22) M/mm3 Hgb (11.2-15.7) gm/L Hct (34.1-44.9) % MCV (79.4-94.8) fl MCH (25.6-32.2) pg MCHC (32.2-35.5) g/dl RDW Std Deviation (36.4-46.3) fL Plt Count (182-369) K/mm3 MPV (9.4-12.3) fl Neut % (Auto) (34.0-71.1) % Lymph % (Auto) (19.3-51.7) % [place] % (Auto) (4.7-12.5) % Eos % (Auto) (0.7-5.8) Baso % (Auto) (0.1-1.2) % Neut # (Auto) (1.56-6.13) K/mm3 Lymph # (Auto) (1.18-3.74) K/mm3 [place] # (Auto) (0.24-0.36) K/mm3 Eos # (Auto) (0.04-0.36) K/mm3 Baso # (Auto) (0.01-0.08) K/mm3 Manual Slide Review Sodium (136-145) mEq/L Potassium (3.5-5.1) mEq/L Chloride (98-107) mEq/L Carbon Dioxide (21-32) mEq/L Anion Gap (5-15) BUN (7-18) mg/dL Creatinine (0.55-1.02) mg/dL Est Cr Clr Drug Dosing mL/min Estimated GFR (MDRD) (>60) mL/min BUN/Creatinine Ratio (14-18) Glucose (83-115) mg/dL POC Glucose 162 H 57 L 58 L (83-110) mg/dL Calcium (8.5-10.1) mg/dL Magnesium (1.8-2.4) mg/dl 08/31/17 08/31/17 08/31/17 Range/Units 06:22 06:27 06:27 WBC 10.39 H (3.98-10.04) K/mm3 RBC 3.29 L (3.98-5.22) M/mm3 Hgb 10.5 L (11.2-15.7) gm/L Hct 32.4 L (34.1-44.9) % MCV 98.5 H (79.4-94.8) fl MCH 31.9 (25.6-32.2) pg MCHC 32.4 (32.2-35.5) g/dl RDW Std Deviation 53.5 H (36.4-46.3) fL Plt Count 268 (182-369) K/mm3 MPV 9.9 (9.4-12.3) fl Neut % (Auto) 60.2 (34.0-71.1) % Lymph % (Auto) 16.3 L (19.3-51.7) % [place] % (Auto) 17.1 H (4.7-12.5) % Eos % (Auto) 5.5 (0.7-5.8) Baso % (Auto) 0.5 (0.1-1.2) % Neut # (Auto) 6.26 H (1.56-6.13) K/mm3 Lymph # (Auto) 1.69 (1.18-3.74) K/mm3 [place] # (Auto) 1.78 H (0.24-0.36) K/mm3 Eos # (Auto) 0.57 H (0.04-0.36) K/mm3 Baso # (Auto) 0.05 (0.01-0.08) K/mm3 Manual Slide Review Normal smear Sodium 139 (136-145) mEq/L Potassium 3.9 (3.5-5.1) mEq/L Chloride 103 (98-107) mEq/L Carbon Dioxide 27 (21-32) mEq/L Anion Gap 12.9 (5-15) BUN 34 H (7-18) mg/dL Creatinine 1.3 H (0.55-1.02) mg/dL Est Cr Clr Drug Dosing 25.83 mL/min Estimated GFR (MDRD) 39 (>60) mL/min BUN/Creatinine Ratio 26.2 H (14-18) Glucose 94 (83-115) mg/dL POC Glucose 91 (83-110) mg/dL Calcium 8.7 (8.5-10.1) mg/dL Magnesium 2.0 (1.8-2.4) mg/dl Marcial Results Last 24 Hours: Microbiology 08/29/17 00:28 Urine Culture - Final Urine, Clean Catch MIXED VON SUGGESTIVE OF CONTAMINATION. Med Orders - Current: Current Medications Acetaminophen (Tylenol) 650 mg PO Q4H PRN PRN Reason: Pain (Mild 1-3)/fever Albuterol/Ipratropium (Duoneb 3.0-0.5 Mg/3 Ml) 3 ml NEB Q4H PRN PRN Reason: Shortness Of Breath/wheezing Amiodarone HCl (Cordarone) 200 mg PO DAILY [facility] Last Admin: 08/31/17 09:12 Dose: 200 mg Benazepril HCl (Lotensin) 60 mg PO DAILY [facility] Last Admin: 08/31/17 09:05 Dose: 60 mg Bisacodyl (Dulcolax) 5 mg PO DAILY PRN PRN Reason: Constipation Calcium Carbonate/Glycine (Tums) 500 mg PO DAILY [facility] Last Admin: 08/31/17 09:05 Dose: 500 mg Dextrose/Water (Dextrose 50% In Water) 50 ml IVPUSH ASDIRECTED PRN PRN Reason: Hypoglycemia Docusate Sodium (Colace) 100 mg PO BID PRN PRN Reason: Constipation Fish Oil (Fish Oil) 1 gm PO DAILY [facility] Last Admin: 08/31/17 09:05 Dose: 1 gm Furosemide (Lasix) 40 mg PO BIDDIURETIC [facility] Last Admin: 08/31/17 05:15 Dose: 40 mg Glipizide (Glucotrol) 2.5 mg PO BID [facility] Last Admin: 08/31/17 09:12 Dose: 2.5 mg Hydralazine HCl (Apresoline) 10 mg IVPUSH Q4H PRN PRN Reason: Hypertension Hydromorphone HCl (Dilaudid) 0.25 mg IVPUSH Q2H PRN PRN Reason: Pain (severe 7-10) Promethazine HCl 6.25 mg/ (Sodium Chloride) 50.25 mls @ 100 mls/hr IV Q6H PRN PRN Reason: Nausea/Vomiting Sodium Chloride (Normal Saline) 1,000 mls @ 50 mls/hr IV ASDIRECTED [facility] Last Admin: 08/31/17 06:23 Dose: 50 mls/hr Insulin Aspart (Novolog) 0 unit SUBCUT BID [facility] PRN Reason: Protocol Last Admin: 08/31/17 09:03 Dose: Not Given Lorazepam (Ativan) 2 mg IVPUSH Q4H PRN PRN Reason: Seizures Lorazepam (Ativan) 0.25 mg IV Q6H PRN PRN Reason: Anxiety Magnesium Hydroxide (Milk Of Magnesia) 30 ml PO Q12H PRN PRN Reason: Constipation Magnesium Sulfate (Pharmacy To Dose - Magnesium Replacement) 1 dose .XX ASDIRECTED [facility] Metoprolol Tartrate (Lopressor) 5 mg IVPUSH Q4H PRN PRN Reason: Tachycardia Metoprolol Tartrate (Lopressor) 50 mg PO Q12HR [facility] Last Admin: 08/31/17 09:13 Dose: Not Given Ondansetron HCl (Zofran) 4 mg IV Q6H PRN PRN Reason: Nausea/Vomiting Oxycodone/Acetaminophen (Percocet 325-5 Mg) 1 tab PO Q4H PRN PRN Reason: Pain (moderate 4-6) Last Admin: 08/31/17 08:23 Dose: 1 tab Polyethylene Glycol (Miralax) 17 gm PO DAILY PRN PRN Reason: Constipation Potassium Chloride (Pharmacy To Dose - Potassium Replacement) 1 dose .XX ASDIRECTED [facility] Rivaroxaban (Xarelto) 15 mg PO DAILY [facility] Last Admin: 08/31/17 09:07 Dose: 15 mg Senna/Docusate Sodium (Senna Plus) 1 tab PO BID PRN PRN Reason: Constipation Last Admin: 08/31/17 05:15 Dose: 1 tab Simvastatin (Zocor) 10 mg PO BEDTIME [facility] Last Admin: 08/30/17 21:55 Dose: 10 mg Temazepam (Restoril) 7.5 mg PO BEDTIME PRN PRN Reason: Sleep Vit A/Vit C/Vit E/Selen/Cu/Zn/Lutei (Icaps Mv) 1 tab PO DAILY [facility] Last Admin: 08/31/17 09:06 Dose: 1 tab Discontinued Medications Hydromorphone HCl (Dilaudid) 0.5 mg IVPUSH ONETIME ONE Stop: 08/28/17 16:04 Last Admin: 08/28/17 16:24 Dose: Not Given Metoprolol Succinate (Toprol Xl) 100 mg PO DAILY [facility] Last Admin: 08/29/17 13:14 Dose: Not Given Non-Formulary Medication (Ubidecarenone [Co Q-10]) 1 tab PO DAILY [facility] Ondansetron HCl (Zofran) 4 mg IVPUSH ONETIME ONE Stop: 08/28/17 16:05 Last Admin: 08/28/17 16:24 Dose: Not Given Oxycodone/Acetaminophen (Percocet 325-5 Mg) 1 tab PO ONETIME ONE Stop: 08/28/17 16:11 Last Admin: 08/28/17 16:15 Dose: 1 tab Potassium Chloride (Klor-Con M20) 40 meq PO ONETIME ONE Stop: 08/29/17 09:31 Last Admin: 08/29/17 09:39 Dose: 40 meq Potassium Chloride (Potassium Chloride) 40 meq PO ONETIME ONE Stop: 08/31/17 04:50 Last Admin: 08/31/17 06:20 Dose: 40 meq Sodium Chloride (Saline Flush) 10 ml FLUSH ASDIRECTED PRN PRN Reason: Keep Vein Open - Exam Quality Assessment: DVT Prophylaxis General: Alert, Oriented, Cooperative, No Acute Distress HEENT: Pupils Equal, Pupils Reactive, EOMI, Mucous Membr. Moist/[place] Neck: Supple, Trachea Midline, No JVD Lungs: Clear to Auscultation, Normal Respiratory Effort Cardiovascular: Regular Rate, Regular Rhythm GI/Abdominal Exam: Normal Bowel Sounds, Soft, Non-Tender, No Organomegaly, No Distention, No Abnormal Bruit, No Mass, Pelvis Stable (Female) Exam: Deferred Back Exam: Normal Inspection, Full Range of Motion Extremities: Normal Inspection, Normal Range of Motion, Non-Tender, No Pedal Edema, Normal Capillary Refill, Other (Brace on right knee ) Peripheral Pulses: 2+: Radial (L), Radial (R), Posterior Tibial (L), Posterior Tibial (R), Dorsalis Pedis (L), Dorsalis Pedis (R) Skin: Warm, Dry, Intact Neurological: No New Focal Deficit Psy/Mental Status: Alert, Normal Affect, Normal Mood - Problem List & Annotations (1) Posterior tibial plateau fracture SNOMED Code(s): 487101130 Code(s): S82.143A - DISPLACED BICONDYLAR FRACTURE OF UNSP TIBIA, INIT Status: Acute Priority: High Current Visit: Yes Qualifiers: Encounter type: initial encounter Fracture type: closed Laterality: right Qualified Code(s): S82.141A - Displaced bicondylar fracture of right tibia, initial encounter for closed fracture (2) HTN (hypertension) SNOMED Code(s): 68251792 Code(s): I10 - ESSENTIAL (PRIMARY) HYPERTENSION Status: Chronic Priority : Low Current Visit: No Qualifiers: Hypertension type: unspecified Qualified Code(s): I10 - Essential (primary ) hypertension (3) A-fib SNOMED Code(s): 47963449 Code(s): I48.91 - UNSPECIFIED ATRIAL FIBRILLATION Status: Chronic Priority: Medium Current Visit: Yes Qualifiers: Atrial fibrillation type: chronic Qualified Code(s): I48.2 - Chronic atrial fibrillation (4) HLD (hyperlipidemia) SNOMED Code(s): 33994359 Code(s): E78.5 - HYPERLIPIDEMIA, UNSPECIFIED Status: Chronic Priority: Low Current Visit: No Qualifiers: Hyperlipidemia type: unspecified Qualified Code(s): E78.5 - Hyperlipidemia , unspecified (5) Arthritis SNOMED Code(s): 9189865 Code(s): M19.90 - UNSPECIFIED OSTEOARTHRITIS, UNSPECIFIED SITE Status: Chronic Priority: Low Current Visit: No (6) Type II diabetes mellitus SNOMED Code(s): 41919265 Code(s): E11.9 - TYPE 2 DIABETES MELLITUS WITHOUT COMPLICATIONS Status: Chronic Priority: Medium Current Visit: Yes Qualifiers: Diabetes mellitus complication status: without complication (7) Hypoglycemia SNOMED Code(s): 622580313 Code(s): E16.2 - HYPOGLYCEMIA, UNSPECIFIED Status: Acute Priority: High Current Visit: Yes - Problem List Review Problem List Initiated/Reviewed/Updated: Yes - Plan Plan:: Assessment/Plan: Acute: Right Knee Fx - CT scan: Minimally depressed posterior tibial plateau fracture - 2/2 Mechanical Fall; tripped over a rug - Case was discussed Ortho in [place] (Dr. Franco), he felt conservative treatment to manage mild knee fracture. He recommended non-weight bearing for the first 6 weeks and partial weight bearing for the next 6 weeks. Further localization will be done outpatient - Pain is controlled - PT/OT consultation - recommending SNF - Ortho follow up outpatient S/p Fall - 2/2 Mechanical Fall - Tripped over a rug; no issues with vision or lighting - Denies any prodromal symptoms Bradycardia - HR in the upper 40s-50s - Unsure if contributory to her recent fall - However she reports no symptoms - She is on Toprol XL 100 mg po Daily; will switch to Lopressor 25 mg po BID Mild Hypokalemia - K 3.4 - 2/2 lasix use - Supplement and monitor Hypoglycemia - Blood sugars in 50's today per nursing report - Asymptomatic - Eating well - Decrease glipizide to once daily in AM Chronic: HTN Atrial Fibrillation, on Xarelto, HR controlled HLD DM2 OA/DJD Plan: She is clinically stable Resume Home Meds High Fall Risk PT/OT consult SW/JORDAN for d/c planning She may likely stay 3 night for SNF/Rehab placement Code status: CPR only Likely discharge tomorrow
[2017-08-31] MEDS: Simvastatin 10 MG Tab PO SCH (20:26)
[2017-08-31] MEDS: Metoprolol Tartrate 25 MG Tab PO SCH (20:27)
[2017-09-01] MEDS: Acetaminophen/oxyCODONE 325-5 MG Tab PO PRN ×2 (05:49→12:34)
[2017-09-01] MEDS: Furosemide 40 MG Tab PO SCH (05:49)
--- NOTE | 2017-09-01 08:37 | PCM.DCSUM1 ---
Discharge Summary - Hospital Course HPI Initial Comments: This is an 87-year-old elderly white female with past medical history of HTN, Atrial Fibrillation, on Xarelto, HLD, DM2, and OA/DJD who comes in for evaluation after difficulty with ambulation today. Per patient, she fell yesterday after she tripped over a rug. At that time she was not able to get up on her own. She denies hitting her head on her way down to the floor. When she was up, she had difficulty putting weight on her affected leg. She denies any prodromal symptoms. She reports pain and swelling associated with the affected leg. Patient denies any other acute issues. Her initial workup in ED shows a glucose of 189. Her UA is negative for urinary tract infection. Her right knee x-ray shows no obvious abnormal finding. Right knee CT scan report reads minimally depressed posterior tibial plateau fracture. Currently, we have no Ortho coverage however ED provider discussed case with on- call Ortho in [facility]. The recommendation is conservative management only. Patient is admitted for medical management of right knee fracture status post fall. She is CPR only. - Discharge Data Discharge Date: 09/01/17 (Admit date: 08/28/17) Discharge Disposition: DC/Tfer to SNF 03 Condition: Fair - Discharge Diagnosis/Problem(s) (1) Posterior tibial plateau fracture SNOMED Code(s): 629349639 ICD Code: S82.143A - DISPLACED BICONDYLAR FRACTURE OF UNSP TIBIA, INIT Status: Acute Priority: High Current Visit: Yes Qualifiers: Encounter type: initial encounter Fracture type: closed Laterality: right Qualified Code(s): S82.141A - Displaced bicondylar fracture of right tibia, initial encounter for closed fracture (2) HTN (hypertension) SNOMED Code(s): 71800056 ICD Code: I10 - ESSENTIAL (PRIMARY) HYPERTENSION Status: Chronic Priority : Medium Current Visit: Yes Qualifiers: Hypertension type: unspecified Qualified Code(s): I10 - Essential (primary ) hypertension (3) A-fib SNOMED Code(s): 39754800 ICD Code: I48.91 - UNSPECIFIED ATRIAL FIBRILLATION Status: Chronic Priority: Medium Current Visit: Yes Qualifiers: Atrial fibrillation type: chronic Qualified Code(s): I48.2 - Chronic atrial fibrillation (4) HLD (hyperlipidemia) SNOMED Code(s): 03207841 ICD Code: E78.5 - HYPERLIPIDEMIA, UNSPECIFIED Status: Chronic Priority: Low Current Visit: No Qualifiers: Hyperlipidemia type: unspecified Qualified Code(s): E78.5 - Hyperlipidemia , unspecified (5) Arthritis SNOMED Code(s): 2111459 ICD Code: M19.90 - UNSPECIFIED OSTEOARTHRITIS, UNSPECIFIED SITE Status: Chronic Priority: Low Current Visit: No (6) Type II diabetes mellitus SNOMED Code(s): 68241224 ICD Code: E11.9 - TYPE 2 DIABETES MELLITUS WITHOUT COMPLICATIONS Status: Chronic Priority: Medium Current Visit: Yes Qualifiers: Diabetes mellitus complication status: without complication 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 insulin 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: without fpc use Qualified Code(s): E11.9 - Type 2 diabetes mellitus without complications (7) Hypoglycemia SNOMED Code(s): 090068236 ICD Code: E16.2 - HYPOGLYCEMIA, UNSPECIFIED Status: Acute Priority: High Current Visit: Yes - Patient Summary/Data Consults: Consultations 08/28/17 22:01 Consult to Case Management [CONS] Routine Consult to Jigger [employer] Pouncing Machine Operator [CONS] Routine Consult to Spiritual Care [CONS] Routine OT Evaluation and Treatment [CONS] Routine PT Evaluation and Treatment [CONS] Routine Labs Pending at D/C: None Hospital Course: Assessment/Plan: Acute: Right Knee Fx - CT scan: Minimally depressed posterior tibial plateau fracture - 2/2 Mechanical Fall; tripped over a rug - Case was discussed Ortho in [place] (Dr. Franco), he felt conservative treatment to manage mild knee fracture. He recommended non-weight bearing for the first 6 weeks and partial weight bearing for the next 6 weeks. Further localization will be done outpatient - Pain is controlled - PT/OT consultation - recommending SNF - Ortho follow up outpatient S/p Fall - 2/2 Mechanical Fall - Tripped over a rug; no issues with vision or lighting - Denies any prodromal symptoms Bradycardia - HR in the upper 40s-50s - Unsure if contributory to her recent fall - However she reports no symptoms - She is on Toprol XL 100 mg po Daily; will switch to Lopressor 25 mg po BID- -> decrease to 25mg once daily Mild Hypokalemia - K 3.4 - 2/2 lasix use - Supplement and monitor Hypoglycemia - Blood sugars in 50's today per nursing report - Asymptomatic - Eating well - Decrease glipizide to once daily in AM ER Chronic: HTN Atrial Fibrillation, on Xarelto, HR controlled HLD DM2 OA/DJD Plan: She is clinically stable Resume Home Meds High Fall Risk PT/OT consult SW/CM for d/c planning She may likely stay 3 night for SNF/Rehab placement Code status: CPR only Annie has been doing ok. Her HR has been quite low and this was addressed by decreasing her Lopressor. This can be monitored and addressed by the PCP. She was instructed to take her blood pressures three times daily and record them. Her sugars have also been quite low and her glipizide was decreased. This should also be monitored and followed up by her PCP. She was instructed to check sugars BID. She will be discharged to SNF for a rehabilitation stay. She has an appointment scheduled with Dr. Puckett and needs to see him at that time. Per [facility] suggestions she should continue to be non-weight bearing for the next 6 weeks. She should see her PCP in 7-10 days after discharge. - Patient Instructions Diet: Diabetic Diet Activity: Non Weight Bearing (for 6 weeks) Driving: Do Not Drive Notify Provider of: Fever, Increased Pain, Nausea and/or Vomiting - Discharge Plan Prescriptions/Med Rec: Acetaminophen/oxyCODONE [Percocet 325-5 MG] 1 tab PO Q4H PRN #20 tablet PRN Reason: Pain (Moderate 4-6) glipiZIDE [Glipizide ER] 2.5 mg PO DAILY #20 tab.er.24 Metoprolol Succinate 25 mg PO DAILY #20 tab.er.24h Home Medications: Home Meds Benazepril [Lotensin] 60 mg PO DAILY 11/04/16 [History] Rivaroxaban [Xarelto] 15 mg PO DAILY #30 tablet 11/05/16 [Rx] Albuterol [Ventolin HFA] 1 puff INH TID PRN 08/28/17 [History] Amiodarone [Cordarone] 200 mg PO DAILY 08/28/17 [History] Furosemide 40 mg PO BID 08/28/17 [History] Calcium Carbonate [Calcium] 1 tab PO DAILY 08/29/17 [History] Fish Oil/[place]-3 Fatty Acids [Fish Oil] 1 tab PO DAILY 08/29/17 [History] Multivitamin/Iron/Folic Acid [Centrum Complete Multivit] 1 tab PO DAILY [History] Simvastatin [Zocor] 10 mg PO BEDTIME 08/29/17 [History] Ubidecarenone [Co Q-10] 1 tab PO DAILY 08/29/17 [History] Simvastatin [Zocor] 20 mg PO BEDTIME 08/30/17 [History] Acetaminophen/oxyCODONE [Percocet 325-5 MG] 1 tab PO Q4H PRN #20 tablet [Rx] Metoprolol Succinate 25 mg PO DAILY #20 tab.er.24h 09/01/17 [Rx] glipiZIDE [Glipizide ER] 2.5 mg PO DAILY #20 tab.er.24 09/01/17 [Rx] Referrals: Morenita Guerra NP [Primary Care Provider] - - Discharge Summary/Plan Comment DC Time >30 min.: Yes (40 minutes) - General Info Date of Service: 09/01/17 Admission Dx/Problem (Free Text: Admission Diagnosis/Problem Admission Diagnosis/Problem Fracture of knee region Subjective Update: In to see Annie today. She is sitting in a chair and doing well. No overnight complaints or concerns. Nursing has no concerns. She'll be discharged today for rehabilitation stay. She's not had a bowel movement since the , however she reports she does not feel constipated or bloated. Was given multiple stool softeners and laxatives. senior living can follow-up with this. - Review of Systems General: Reports: No Symptoms. Denies: Fever, Weakness, Fatigue HEENT: Reports: No Symptoms Pulmonary: Reports: No Symptoms. Denies: Shortness of Breath, Cough, Sputum Cardiovascular: Reports: No Symptoms. Denies: Chest Pain, Dyspnea on Exertion, Edema Gastrointestinal: Reports: No Symptoms. Denies: Abdominal Pain, Constipation, Diarrhea, Nausea, Vomiting Genitourinary: Reports: No Symptoms Musculoskeletal: Reports: Joint Pain (Right knee pain ) Skin: Reports: No Symptoms Neurological: Reports: No Symptoms Psychiatric: Reports: No Symptoms - Patient Data Vitals - Most Recent: Last Vital Signs Temp 98.6 F 09/01/17 07:57 Pulse 54 L 09/01/17 07:57 Resp 20 09/01/17 07:57 BP 142/53 H 09/01/17 07:57 Pulse Ox 92 L 03/21/18 07:57 Weight - Most Recent: 181 lb I&O - Last 24 hours: Intake & Output 08/31/17 09/01/17 09/01/17 22:59 06:59 14:59 Intake Total 2961 950 Output Total 2300 2150 Balance 661 -1200 Lab Results - Last 24 hrs: Laboratory Results - last 24 hr 08/31/17 08/31/17 09/01/17 Range/Units 11:20 22:21 05:40 WBC 9.79 (3.98-10.04) K/mm3 RBC 3.45 L (3.98-5.22) M/mm3 Hgb 10.9 L (11.2-15.7) gm/L Hct 34.1 (34.1-44.9) % MCV 98.8 H (79.4-94.8) fl MCH 31.6 (25.6-32.2) pg MCHC 32.0 L (32.2-35.5) g/dl RDW Std Deviation 53.5 H (36.4-46.3) fL Plt Count 288 (182-369) K/mm3 MPV 10.1 (9.4-12.3) fl Neut % (Auto) 57.7 (34.0-71.1) % Lymph % (Auto) 15.0 L (19.3-51.7) % Johnston % (Auto) 18.1 H (4.7-12.5) % Eos % (Auto) 8.0 H (0.7-5.8) Baso % (Auto) 0.9 (0.1-1.2) % Neut # (Auto) 5.65 (1.56-6.13) K/mm3 Lymph # (Auto) 1.47 (1.18-3.74) K/mm3 Johnston # (Auto) 1.77 H (0.24-0.36) K/mm3 Eos # (Auto) 0.78 H (0.04-0.36) K/mm3 Baso # (Auto) 0.09 H (0.01-0.08) K/mm3 Manual Slide Review Normal smear Sodium (136-145) mEq/L Potassium (3.5-5.1) mEq/L Chloride (98-107) mEq/L Carbon Dioxide (21-32) mEq/L Anion Gap (5-15) BUN (7-18) mg/dL Creatinine (0.55-1.02) mg/dL Est Cr Clr Drug Dosing mL/min Estimated GFR (MDRD) (>60) mL/min BUN/Creatinine Ratio (14-18) Glucose (83-115) mg/dL POC Glucose 99 147 H (83-110) mg/dL Calcium (8.5-10.1) mg/dL Magnesium (1.8-2.4) mg/dl 09/01/17 09/01/17 Range/Units 05:40 06:57 WBC (3.98-10.04) K/mm3 RBC (3.98-5.22) M/mm3 Hgb (11.2-15.7) gm/L Hct (34.1-44.9) % MCV (79.4-94.8) fl MCH (25.6-32.2) pg MCHC (32.2-35.5) g/dl RDW Std Deviation (36.4-46.3) fL Plt Count (182-369) K/mm3 MPV (9.4-12.3) fl Neut % (Auto) (34.0-71.1) % Lymph % (Auto) (19.3-51.7) % Johnston % (Auto) (4.7-12.5) % Eos % (Auto) (0.7-5.8) Baso % (Auto) (0.1-1.2) % Neut # (Auto) (1.56-6.13) K/mm3 Lymph # (Auto) (1.18-3.74) K/mm3 Johnston # (Auto) (0.24-0.36) K/mm3 Eos # (Auto) (0.04-0.36) K/mm3 Baso # (Auto) (0.01-0.08) K/mm3 Manual Slide Review Sodium 137 (136-145) mEq/L Potassium 4.5 (3.5-5.1) mEq/L Chloride 100 (98-107) mEq/L Carbon Dioxide 29 (21-32) mEq/L Anion Gap 12.5 (5-15) BUN 36 H (7-18) mg/dL Creatinine 1.2 H (0.55-1.02) mg/dL Est Cr Clr Drug Dosing 27.98 mL/min Estimated GFR (MDRD) 42 (>60) mL/min BUN/Creatinine Ratio 30.0 H (14-18) Glucose 110 (83-115) mg/dL POC Glucose 117 H (83-110) mg/dL Calcium 8.8 (8.5-10.1) mg/dL Magnesium 2.3 (1.8-2.4) mg/dl JOAQUÍN Results - Last 24 hrs: Microbiology 08/29/17 00:28 Urine Culture - Final Urine, Clean Catch MIXED VON SUGGESTIVE OF CONTAMINATION. Med Orders - Current: Current Medications Acetaminophen (Tylenol) 650 mg PO Q4H PRN PRN Reason: Pain (Mild 1-3)/fever Albuterol/Ipratropium (Duoneb 3.0-0.5 Mg/3 Ml) 3 ml NEB Q4H PRN PRN Reason: Shortness Of Breath/wheezing Amiodarone HCl (Cordarone) 200 mg PO DAILY [facility] Last Admin: 08/31/17 09:12 Dose: 200 mg Benazepril HCl (Lotensin) 60 mg PO DAILY [facility] Last Admin: 08/31/17 09:05 Dose: 60 mg Bisacodyl (Dulcolax) 5 mg PO DAILY PRN PRN Reason: Constipation Last Admin: 09/01/17 04:11 Dose: 5 mg Calcium Carbonate/Glycine (Tums) 500 mg PO DAILY [facility] Last Admin: 08/31/17 09:05 Dose: 500 mg Dextrose/Water (Dextrose 50% In Water) 50 ml IVPUSH ASDIRECTED PRN PRN Reason: Hypoglycemia Docusate Sodium (Colace) 100 mg PO BID PRN PRN Reason: Constipation Last Admin: 08/31/17 20:26 Dose: 100 mg Fish Oil (Fish Oil) 1 gm PO DAILY [facility] Last Admin: 08/31/17 09:05 Dose: 1 gm Furosemide (Lasix) 40 mg PO BIDDIURETIC [facility] Last Admin: 09/01/17 05:49 Dose: 40 mg Glipizide (Glucotrol) 2.5 mg PO DAILY [facility] Hydralazine HCl (Apresoline) 10 mg IVPUSH Q4H PRN PRN Reason: Hypertension Hydromorphone HCl (Dilaudid) 0.25 mg IVPUSH Q2H PRN PRN Reason: Pain (severe 7-10) Promethazine HCl 6.25 mg/ (Sodium Chloride) 50.25 mls @ 100 mls/hr IV Q6H PRN PRN Reason: Nausea/Vomiting Insulin Aspart (Novolog) 0 unit SUBCUT BID [facility] PRN Reason: Protocol Last Admin: 08/31/17 22:56 Dose: Not Given Lorazepam (Ativan) 2 mg IVPUSH Q4H PRN PRN Reason: Seizures Lorazepam (Ativan) 0.25 mg IV Q6H PRN PRN Reason: Anxiety Magnesium Hydroxide (Milk Of Magnesia) 30 ml PO Q12H PRN PRN Reason: Constipation Last Admin: 08/31/17 16:51 Dose: 30 ml Magnesium Sulfate (Pharmacy To Dose - Magnesium Replacement) 1 dose .XX ASDIRECTED [facility] Metoprolol Tartrate (Lopressor) 5 mg IVPUSH Q4H PRN PRN Reason: Tachycardia Metoprolol Tartrate (Lopressor) 25 mg PO Q12HR [facility] Last Admin: 08/31/17 20:27 Dose: 25 mg Ondansetron HCl (Zofran) 4 mg IV Q6H PRN PRN Reason: Nausea/Vomiting Oxycodone/Acetaminophen (Percocet 325-5 Mg) 1 tab PO Q4H PRN PRN Reason: Pain (moderate 4-6) Last Admin: 09/01/17 05:49 Dose: 1 tab Polyethylene Glycol (Miralax) 17 gm PO DAILY PRN PRN Reason: Constipation Last Admin: 09/01/17 04:12 Dose: 17 gm Potassium Chloride (Pharmacy To Dose - Potassium Replacement) 1 dose .XX ASDIRECTED [facility] Rivaroxaban (Xarelto) 15 mg PO DAILY [facility] Last Admin: 08/31/17 09:07 Dose: 15 mg Senna/Docusate Sodium (Senna Plus) 1 tab PO BID PRN PRN Reason: Constipation Last Admin: 08/31/17 05:15 Dose: 1 tab Simvastatin (Zocor) 10 mg PO BEDTIME [facility] Last Admin: 08/31/17 20:26 Dose: 10 mg Temazepam (Restoril) 7.5 mg PO BEDTIME PRN PRN Reason: Sleep Vit A/Vit C/Vit E/Selen/Cu/Zn/Lutei (Icaps Mv) 1 tab PO DAILY [facility] Last Admin: 08/31/17 09:06 Dose: 1 tab Discontinued Medications Glipizide (Glucotrol) 2.5 mg PO BID [facility] Last Admin: 08/31/17 09:12 Dose: 2.5 mg Glipizide (Glucotrol Xl) 2.5 mg PO DAILY [facility] Hydromorphone HCl (Dilaudid) 0.5 mg IVPUSH ONETIME ONE Stop: 08/28/17 16:04 Last Admin: 08/28/17 16:24 Dose: Not Given Sodium Chloride (Normal Saline) 1,000 mls @ 50 mls/hr IV ASDIRECTED [facility] Last Admin: 08/31/17 06:23 Dose: 50 mls/hr Metoprolol Succinate (Toprol Xl) 100 mg PO DAILY [facility] Last Admin: 08/29/17 13:14 Dose: Not Given Metoprolol Tartrate (Lopressor) 50 mg PO Q12HR [facility] Last Admin: 08/31/17 09:13 Dose: Not Given Non-Formulary Medication (Ubidecarenone [Co Q-10]) 1 tab PO DAILY [facility] Ondansetron HCl (Zofran) 4 mg IVPUSH ONETIME ONE Stop: 08/28/17 16:05 Last Admin: 08/28/17 16:24 Dose: Not Given Oxycodone/Acetaminophen (Percocet 325-5 Mg) 1 tab PO ONETIME ONE Stop: 08/28/17 16:11 Last Admin: 08/28/17 16:15 Dose: 1 tab Potassium Chloride (Klor-Con M20) 40 meq PO ONETIME ONE Stop: 08/29/17 09:31 Last Admin: 08/29/17 09:39 Dose: 40 meq Potassium Chloride (Potassium Chloride) 40 meq PO ONETIME ONE Stop: 08/31/17 04:50 Last Admin: 08/31/17 06:20 Dose: 40 meq Sodium Chloride (Saline Flush) 10 ml FLUSH ASDIRECTED PRN PRN Reason: Keep Vein Open - Exam Quality Assessment: Reports: DVT Prophylaxis General: Reports: Alert, Oriented, Cooperative, No Acute Distress HEENT: Reports: Pupils Equal, Pupils Reactive, EOMI, Mucous Membr. Moist/[place] Neck: Reports: Supple, Trachea Midline, No JVD Lungs: Reports: Clear to Auscultation, Normal Respiratory Effort Cardiovascular: Reports: Irregular Rhythm, Murmurs GI/Abdominal Exam: Normal Bowel Sounds, Soft, Non-Tender, No Organomegaly, No Distention, No Abnormal Bruit, No Mass, Pelvis Stable (Female) Exam: Deferred Rectal (Female) Exam: Deferred Extremities: Normal Inspection, Normal Range of Motion, Non-Tender, No Pedal Edema, Normal Capillary Refill Skin: Reports: Warm, Dry, Intact Neurological: Reports: No New Focal Deficit Psy/Mental Status: Reports: Alert, Normal Affect, Normal Mood *Q Meaningful Use (DIS) - VTE *Q VTE Criteria *Q: - Stroke *Q Stroke Criteria *Q: - AMI *Q AMI Criteria *Q:
[2017-09-01] MEDS ORDERED: glipiZIDE 2.5 MG Tab.ER PO SCH (09:00)
[2017-09-01] MEDS ORDERED: glipiZIDE 5 MG Tab PO SCH (09:00)
[2017-09-01] MEDS ORDERED: Bisacodyl 10 MG Supp RECTAL ONE (09:00)
[2017-09-01] MEDS: Calcium Carbonate 500 MG Tab.Chew PO SCH (09:26)
[2017-09-01] MEDS: Rivaroxaban 10 MG Tab PO SCH (09:27)
[2017-09-01] MEDS: Multivitamins with Minerals/Folic Acid/Lutein/Zeaxanth Tab PO SCH (09:28)
[2017-09-01] MEDS: Fish Oil/Omega-3 Fatty Acids 1 Gm Cap PO SCH (09:29)
[2017-09-01] MEDS: Amiodarone 200 MG Tab PO SCH (09:33)
[2017-09-01 09:34] VITALS: BP 119/46
[2017-09-01] MEDS: Metoprolol Tartrate 25 MG Tab PO SCH (09:34)
[2017-09-01] MEDS: Insulin Aspart 100 Units/ML 3 ML Pen SUBCUT SCH (09:34)
[2017-09-01] MEDS ORDERED: Pneumococcal Polyvalent-23 Vaccine 0.5 ML SDV IM ONE (13:00)
== END 2017-09-01 13:10 | DRG 563 ==
LOC: JD.ED 15:14 → JD.MS 20:19
PROVIDERS: ADMIT Internal Medicine; ATTEND Internal Medicine
DX: S82.141A Displaced bicondylar fracture of right tibia, initial encounter for closed fracture (principal); W01.0XXA Fall on same level from slipping, tripping and stumbling without subsequent striking against object, initial encounter; I48.91 Unspecified atrial fibrillation; E78.00 Pure hypercholesterolemia, unspecified; R00.1 Bradycardia, unspecified; E87.6 Hypokalemia; E11.9 Type 2 diabetes mellitus without complications; I10 Essential (primary) hypertension; I48.2 Chronic atrial fibrillation; E78.5 Hyperlipidemia, unspecified; M19.90 Unspecified osteoarthritis, unspecified site; E11.649 Type 2 diabetes mellitus with hypoglycemia without coma; Z79.84 Long term (current) use of oral hypoglycemic drugs; Z79.01 Long term (current) use of anticoagulants; Z79.899 Other long term (current) drug therapy
CPT/HCPCS: 73564; 73700; 99285; A9270; 36415; 80048; 81001; 82962; 83735; 85025; 87086; 90471; 90732; 97110-GO; 97110-GP; 97116-GP; 97162-GP; 97166-GO; 97530-GO; 97530-GP; 97535-GO; J1815-GY; J7040

== ENCOUNTER 2018-10-19 17:15 | Emergency (ER) | payer MEDICARE, BC ==
[2018-10-19] MEDS ORDERED: Sodium Chloride 0.9% 10 ML Syringe FLUSH PRN (17:37)
[2018-10-19] MEDS ORDERED: Furosemide 40 MG/4 ML VIAL IVPUSH ONE (17:38)
[2018-10-19] MEDS ORDERED: Diltiazem 50 MG/10 ML SDV IVPUSH ONE ×2 (17:39→18:17)
--- NOTE | 2018-10-19 17:40 | EDM.PDOC ---
ED HPI GENERAL MEDICAL PROBLEM - General Chief Complaint: Respiratory Problem Stated Complaint: COUGH AND SOB Time Seen by Provider: 10/19/18 17:27 Source of Information: Reports: Patient, Family (daughter) History Limitations: Reports: Respiratory Distress - History of Present Illness INITIAL COMMENTS - FREE TEXT/NARRATIVE: 88-year-old female presents to the ED for evaluation of gradually worsening dyspnea and shortness of breath on minimal exertion over the last 3 days. She states she is coughing and bringing up some whitish sputum and some yellow tissue components at times. Denies any hemoptysis. She can tell that she is wheezing. She has a history of chronic atrial fibrillation and is on Xarelto but her medical records are incorrect, the dosage has to be sorted out. She is likely on 2.5 mg twice a day. She's had to sleep sitting up for the last 2 nights unable to lie flat due to orthopnea. She didn't sleep at all last night due to dyspnea. States she hasn't been eating much at all either for the last 2 days. She appreciates that her lower extremities have become more swollen over the last several days as well. She denies any recent changes to her medications. She is normally on Lasix 40 mg twice daily. Onset: Gradual Onset Date: 10/15/18 (He believe she started to feel unwell on Wednesday) Duration: Day(s): (He believe she started to feel unwell on Wednesday, October 15.), Getting Worse Location: Reports: Chest (Increased shortness of breath with wheezing and cough. ), Lower Extremity, Left (Both lower extremities are grossly swollen with edema. ), Lower Extremity, Right Quality: Reports: Other Severity: Severe (Shortness of breath with wheezing.) Improves with: Reports: Rest Worsens with: Reports: Movement Context: Reports: Other. Denies: Activity (Worse with any exertion or trying to lie flat.), Exercise, Lifting, Sick Contact, Trauma Associated Symptoms: Reports: Cough, cough w sputum (Spontaneous occurrence), Malaise, Shortness of Breath, Weakness, Other (Loss of appetite). Denies: No Other Symptoms, Confusion, Chest Pain, Diaphoresis, Fever/Chills, Nausea/ Vomiting, Rash, Seizure, Syncope Treatments TRANSIT DRIVER: Reports: Other (see below) (Has been taking her normal medications as prescribed.) Chest Pain Score (Numeric/FACES): 6 - Related Data Allergies Allergy/AdvReac Type Severity Reaction Status Date / Time No Known Allergies Allergy Verified 10/19/18 17:29 Home Meds: Home Meds Benazepril [Lotensin] 50 mg PO DAILY 11/04/16 [History] Rivaroxaban [Xarelto] 15 mg PO DAILY #30 tablet 11/05/16 [Rx] Furosemide 40 mg PO BID 08/28/17 [History] Calcium Carbonate [Calcium] 1 tab PO DAILY 08/29/17 [History] Multivitamin/Iron/Folic Acid [Centrum Complete Multivit] 1 tab PO DAILY [History] Ubidecarenone [Co Q-10] 1 tab PO DAILY 08/29/17 [History] Simvastatin [Zocor] 20 mg PO BEDTIME 08/30/17 [History] Docusate Sodium/Sennosides [Senokot-S] 1 each PO BID #40 tablet 09/01/17 [Rx] Metoprolol Succinate 25 mg PO DAILY #20 tab.er.24h 09/01/17 [Rx] Mexiletine [Mexitil] 150 mg PO BID 10/19/18 [History] amLODIPine [Norvasc] 5 mg PO DAILY 10/19/18 [History] Past Medical History Cardiovascular History: Reports: Afib (Atrial fibrillation which I presume is chronic.), High Cholesterol, Hypertension Genitourinary History: Reports: Chronic Renal Insuffiency, Other (See Below) ( Should had left nephrectomy done by [facility] 4 months ago.) REGULATORY ASSISTANT History: Reports: Musculoskeletal History: Reports: Arthritis Endocrine/Metabolic History: Reports: Diabetes, Type II Other Endocrine/Metabolic History: Checks blood glucose @ home BID and PRN. Oncologic (Cancer) History: Reports: Renal - Past Surgical History HEENT Surgical History: Reports: Cataract Surgery, Tonsillectomy GI Surgical History: Reports: Appendectomy, Cholecystectomy Female Surgical History: Reports: Hysterectomy Musculoskeletal Surgical History: Reports: Arthroscopic Procedure (right knee) Social & Family History - Family History Family Medical History: Noncontributory - Caffeine Use Caffeine Use: Reports: Coffee Other Caffeine Use: one cup of coffee every morning Caffeine Use Comment: Has coffee in the morning - Living Situation & Occupation Living situation: Reports: , Alone Occupation: Retired ED ROS GENERAL - Review of Systems Review Of Systems: See Below Constitutional: Reports: Malaise, Weakness, Fatigue, Decreased Appetite. Denies : Fever, Chills HEENT: Reports: Glasses, Hearing Loss (Mild) Respiratory: Reports: Shortness of Breath, Wheezing, Cough, Sputum. Denies: Pleuritic Chest Pain, Hemoptysis (Combination of slight yellow tinged sputum with white sputum.) Cardiovascular: Reports: Blood Pressure Problem, Dyspnea on Exertion ( Increasing edema both lower extremities.), Edema, Lightheadedness, Orthopnea ( Chronic hypertension). Denies: Chest Pain, Claudication, Palpitations Endocrine: Reports: Fatigue (She is not aware of palpitations.) GI/Abdominal: Reports: Constipation, Decreased Appetite, Distension (Feels bloated and distended.), Nausea. Denies: Vomiting (Occasional nausea) : Reports: Frequency, Incontinence (Both urge and stress components.). Denies : Hematuria Musculoskeletal: Reports: Neck Pain (Neck pain at times.), Shoulder Pain, Back Pain, Joint Pain Skin: Reports: No Symptoms Neurological: Reports: Difficulty Walking (Due to dyspnea.), Weakness. Denies: Dizziness, Headache, Numbness, Syncope, Tingling Psychiatric: Reports: No Symptoms Hematologic/Lymphatic: Reports: No Symptoms Immunologic: Reports: No Symptoms ED EXAM, GENERAL - Physical Exam Exam: See Below Exam Limited By: Respiratory Distress (Moderate respiratory distress. O2 sats are 90% on room air. Respiratory distress 20-24/m.) General Appearance: Alert, Moderate Distress Eye Exam: Bilateral Eye: Other (Peripheral margins are both quite pallid. Hemoglobin is estimated to be around 10.) Throat/Mouth: Normal Voice, Other (Tongue is quite dry as is the oropharynx.). No: Normal Oropharynx Head: Atraumatic, Normocephalic Neck: Normal Inspection, Supple, Limited Range of Motion. No: Full Range of Motion, Carotid Bruit, Lymphadenopathy (L), Lymphadenopathy (R), Thyromegaly Respiratory/Chest: No Accessory Muscle Use, Chest Non-Tender, Respiratory Distress (Tachypnea 20-24/m.), Rales (Doug both lower lobes worse on the right as compared to the left.) Cardiovascular: No Murmur, No Rub, JVD (3 cm. Below the angle of her mandible on the right side), Tachycardia, Irregularly Irregular (Patient is in atrial fibrillation with a rate in the 130s. ie. rapid ventricular response.). No: Normal Peripheral Pulses, Regular Rate, Rhythm Peripheral Pulses: 0: Popliteal (L) (No pulses are palpable below the femorals due to severe edema of both lower extremities.), Popliteal (R), Posterior Tibial (L), Posterior Tibial (R), Dorsalis Pedis (L), Dorsalis Pedis (R) GI/Abdominal: Normal Bowel Sounds, Non-Tender, No Organomegaly, Distended (The abdomen is distended and template to percussion compatible with aerophagia.), Other. No: Guarding, Rigid, Rebound Back Exam: Normal Inspection, Full Range of Motion. No: CVA Tenderness (L), CVA Tenderness (R) Extremities: Pedal Edema (4+ pitting edema both lower extremities up to the knees bilaterally. No venous stasis ulcers present.) Neurological: Alert, Oriented, CN II-XII Intact, Normal Cognition. 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 DIRECTED Care 10/19/18 17:37 Active Urinary Catheter Assessment [RC] ASDIRECTED Care 10/19/18 18:37 Active Chest 1V Frontal [CR] Stat Exams 10/19/18 17:36 Taken C-REACTIVE PROTEIN [CHEM] Stat Lab 10/19/18 17:30 Results CKMB [CHEM] Stat Lab 10/19/18 17:30 Results COMPREHENSIVE METABOLIC PN,CMP [CHEM] Stat Lab 10/19/18 17:30 Results MAGNESIUM [CHEM] Stat Lab 10/19/18 17:30 Results TROPONIN I [CHEM] Stat Lab 10/19/18 17:30 Results TSH [CHEM] Stat Lab 10/19/18 17:30 Results Diltiazem 125 mg Med 10/19/18 17:45 Active Sodium Chloride 0.9% [Normal Saline] 100 ml IV TITRATE Sodium Chloride 0.9% [Saline Flush] Med 10/19/18 17:37 Active 10 ml FLUSH ASDIRECTED PRN Peripheral IV Insertion Adult [OM.PC] Stat Oth 10/19/18 17:37 Ordered Medication Orders Diltiazem HCl 125 mg/ Sodium (Chloride) 125 mls @ 10 mls/hr IV TITRATE YOLANDA; Protocol Last Titration: 10/19/18 18:24 Dose: 10 mg/hr, 10 mls/hr Admin: 10/19/18 18:01 Dose: 5 mg/hr, 5 mls/hr Sodium Chloride (Saline Flush) 10 ml FLUSH ASDIRECTED PRN PRN Reason: Keep Vein Open Last Admin: 10/19/18 17:54 Dose: 10 ml Labs: Laboratory Tests 10/19/18 10/19/18 10/19/18 Range/Units 17:30 17:30 17:30 WBC 15.60 H (3.98-10.04) K/mm3 RBC 3.29 L (3.98-5.22) M/mm3 Hgb 10.3 L (11.2-15.7) gm/L Hct 31.3 L (34.1-44.9) % MCV 95.1 H (79.4-94.8) fl MCH 31.3 (25.6-32.2) pg MCHC 32.9 (32.2-35.5) g/dl RDW Std Deviation 43.8 (36.4-46.3) fL Plt Count 512 H (182-369) K/mm3 MPV 9.9 (9.4-12.3) fl Neutrophils % (Manual) 79 H (40-60) % Band Neutrophils % 1 (0-10) % Lymphocytes % (Manual) 12 L (20-40) % Atypical Lymphs % 0 % Monocytes % (Manual) 8 (2-10) % Eosinophils % (Manual) 0 L (0.7-5.8) % Basophils % (Manual) 0 L (0.1-1.2) Toxic Granulation 1+ slight Platelet Estimate Marked inc Plt Morphology Comment Normal Polychromasia 1+ slight Macrocytosis 1+ slight Target Cells 1+ slight Ovalocytes 1+ slight RBC Morph Comment Not Reportable PT 30.3 H (9.5-12.1) SECONDS INR 2.84 Sodium 123 L (136-145) mEq/L Potassium 4.5 (3.5-5.1) mEq/L Chloride 87 L D (98-107) mEq/L Carbon Dioxide 16 L (21-32) mEq/L Anion Gap 24.5 H (5-15) BUN 84 H D (7-18) mg/dL Creatinine 2.9 H (0.55-1.02) mg/dL Est Cr Clr Drug Dosing 10.88 mL/min Estimated GFR (MDRD) 15 (>60) mL/min BUN/Creatinine Ratio 29.0 H (14-18) Glucose 164 H (83-115) mg/dL Hemoglobin A1c (4.50-6.20) % Calcium 8.8 (8.5-10.1) mg/dL Magnesium 2.5 H (1.8-2.4) mg/dl Total Bilirubin 3.1 H (0.2-1.0) mg/dL AST 258 H (15-37) U/L ALT 238 H (14-59) U/L Alkaline Phosphatase 262 H (46-116) U/L CK-MB (CK-2) 8.6 H (0-3.6) ng/ml Troponin I 0.023 (0.00-0.056) ng/mL NT-Pro-B Natriuret Pep (0-450) pg/mL Total Protein 7.8 (6.4-8.2) g/dl Albumin 3.3 L (3.4-5.0) g/dl Globulin 4.5 gm/dL Albumin/Globulin Ratio 0.7 L (1-2) TSH 3rd Generation 1.673 (0.358-3.74) uIU/mL 10/19/18 10/19/18 Range/Units 17:30 17:30 WBC (3.98-10.04) K/mm3 RBC (3.98-5.22) M/mm3 Hgb (11.2-15.7) gm/L Hct (34.1-44.9) % MCV (79.4-94.8) fl MCH (25.6-32.2) pg MCHC (32.2-35.5) g/dl RDW Std Deviation (36.4-46.3) fL Plt Count (182-369) K/mm3 MPV (9.4-12.3) fl Neutrophils % (Manual) (40-60) % Band Neutrophils % (0-10) % Lymphocytes % (Manual) (20-40) % Atypical Lymphs % % Monocytes % (Manual) (2-10) % Eosinophils % (Manual) (0.7-5.8) % Basophils % (Manual) (0.1-1.2) Toxic Granulation Platelet Estimate Plt Morphology Comment Polychromasia Macrocytosis Target Cells Ovalocytes RBC Morph Comment PT (9.5-12.1) SECONDS INR Sodium (136-145) mEq/L Potassium (3.5-5.1) mEq/L Chloride (98-107) mEq/L Carbon Dioxide (21-32) mEq/L Anion Gap (5-15) BUN (7-18) mg/dL Creatinine (0.55-1.02) mg/dL Est Cr Clr Drug Dosing mL/min Estimated GFR (MDRD) (>60) mL/min BUN/Creatinine Ratio (14-18) Glucose (83-115) mg/dL Hemoglobin A1c 7.00 H (4.50-6.20) % Calcium (8.5-10.1) mg/dL Magnesium (1.8-2.4) mg/dl Total Bilirubin (0.2-1.0) mg/dL AST (15-37) U/L ALT (14-59) U/L Alkaline Phosphatase (46-116) U/L CK-MB (CK-2) (0-3.6) ng/ml Troponin I (0.00-0.056) ng/mL NT-Pro-B Natriuret Pep 25037 H (0-450) pg/mL Total Protein (6.4-8.2) g/dl Albumin (3.4-5.0) g/dl Globulin gm/dL Albumin/Globulin Ratio (1-2) TSH 3rd Generation (0.358-3.74) uIU/mL Meds: Medications Generic Name Dose Route Start Last Admin Trade Name Freq PRN Reason Stop Dose Admin Diltiazem HCl 125 mg/ Sodium 125 mls @ 10 mls/hr 10/19/18 17:45 10/19/18 18: 24 Chloride IV 10 mg/hr TITRATE YOLANDA 10 mls/hr Titration Protocol 10 MG/HR Sodium Chloride 10 ml 10/19/18 17:37 10/19/18 17:54 Saline Flush FLUSH 10 ml ASDIRECTED PRN Administration Keep Vein Open Discontinued Medications Generic Name Dose Route Start Last Admin Trade Name Freq PRN Reason Stop Dose Admin Diltiazem HCl 10 mg 10/19/18 17:39 10/19/18 17:58 Cardizem IVPUSH 10/19/18 17:40 10 mg ONETIME ONE Administration Diltiazem HCl Confirm 10/19/18 17:51 10/19/18 18:03 Cardizem Administered 10/19/18 17:52 Not Given Dose 50 mg .ROUTE .STK-MED ONE Diltiazem HCl 10 mg 10/19/18 18:17 10/19/18 18:25 Cardizem IVPUSH 10/19/18 18:18 10 mg ONETIME ONE Administration Furosemide 60 mg 10/19/18 17:38 10/19/18 17:54 Lasix IVPUSH 10/19/18 17:39 60 mg NOW ONE Administration Furosemide Confirm 10/19/18 17:50 10/19/18 18:03 Lasix Administered 10/19/18 17:51 Not Given Dose 40 mg .ROUTE .STK-MED ONE - Radiology Interpretation Free Text/Narrative:: 88-year-old female presents the ED with a 4-5 day history of gradually worsening dyspnea with audible wheeze and productive cough of slightly yellowish tinged phlegm. By history she is in chronic atrial fibrillation and is on amiodarone for rate control and Xarelto for anticoagulation but the dosage has to be checked. Examination reveals her to be in atrial fib/atrial flutter with a rate of 1:15 to 1 45/m. She has rales in both lower lobes of lungs with bilateral expiratory wheezes at times. Abdomen is distended into play to percussion due to aerophagia. She has edema in her lower extremities up to the knees bilaterally. Plan O2 sats only 90% at rest. Placed on oxygen at 2 L /m by nasal cannula. Peripheral IV lock started. She will receive Lasix 60 mg IV. She'll be started on Cardizem 10 mg IV bolus then 5 mg an hour. Labs to be done to include cardiac markers magnesium and BNP. One view chest be done portably. She will likely require admission to the hospital. - Re-Assessments/Exams Free Text/Narrative Re-Assessment/Exam: 10/19/18 18:00: Chest x-ray done portably reveals moderate cardiomegaly with blunted left costophrenic angle and I believe also a small right-sided pleural effusion. Remains has 117 per minute. BP is 110/72. Sats are 94% on 2 L. Will repeat diltiazem 10 mg IV bolus. We'll also increase her diltiazem drip to 10 mg per hour. 10/19/18 18:19 Only part of the hematology is back. Total white count is elevated at 15.60. Differential is pending. Hemoglobin is 10.3. Hematocrit is 31.3. MCV is 95.1 slightly elevated. Platelet count is elevated at 512,000 essential thrombocytosis. 10/19/18 18:31 Her INR came back at 2.84 suggesting she is probably on Coumadin. PT came back at 30.3. Her current med list therefore is not correct. We will phone the drugstore and get an up-to-date medication list. 10/19/18 18:46 Differential on the white count is 79% neutrophils and 1% band cells. 12% lymphocytes. The slide shows marked increase in platelet count 1+ polychromasia. 1+ macrocytosis. 1+ target cells and 1+ ovalocytes suggesting some degree of splenomegaly. Sodium is very low at 123. Testim is 4.5. Chloride is 87 and bicarbonate is low at 16 due to hyperventilation response. Anion gap is markedly elevated at 24.5. BUN is 84 with a creatinine of 2.9. GFR is down to 15 i.e. stage IV tearing on stage V renal insufficiency. Glucose is 164. Hemoglobin A1c is 7.0. Calcium is 8.8 magnesium is 2.5. Total bilirubin is elevated at 3.1 AST is 258 ALT is 238 and alk phosphatase is 262. I believe this is most likely due to hepatic congestion from congestive heart failure. CK- MB fraction is elevated at 8.6. Troponin I is normal at 0.0-3. C-reactive protein is pending. BNP is 20,017. Total protein is 7.8. Albumin is 3.3 globulin is 4.5. TSH is 1.67. Most recent med list was obtained from [facility] at [facility]. No Coumadin is listed. This makes me wonder if her elevated INR is due to auto anticoagulation from hepatic congestion. Currently she is unable to get up to the bathroom and is too short of breath to use a bedpan with any degree of regularity. Therefore Salinas catheter will be placed. 10/19/18 18:49 Heart rate is staying around 100. BP is elevated at 139/34. He had has come up as the rate has come down. Sats remained 91-94% on 2 L. I'm going to increase it to 3 L/m. I have spoken to Dr. Fields power distribution engineer hospitalist and the patient will be admitted to the intensive care unit due to need for diltiazem drip. 10/19/18 18:52 Patient is on Mexiletine 150 mg twice a day prescribed by her biomedical service engineer Dr. Huynh. Dosage needs to be reduced if there is hepatic insufficiency and/or renal insufficiency and she has both. It is my suggestion that this medication be discontinued completely. Patient is also supposedly on Xarelto of 15mg od. Medication usually is discontinued a creatinine clearance is less than 30. Her's is 15. It appears this medication needs to be reduced substantially or alternative medication used for prevention of stroke. Her prognosis at this time remains extremely guarded. Patient has multiple comorbidities. Patient well may need dialysis to preserve her life. 10/19/18 19:46 Patient has been accepted in [facility] by Dr. Coates power distribution engineer hospitalist. Will be transferred to that hospital per ground ambulance. At the time of discharge she remains in atrial fib at 99-106/m. Her roommate maintained therefore on Cardizem drip at 10 mg per hour. Departure - Departure Time of Disposition: 19:50 Disposition: DC/Tfer to Acute Hospital 02 Condition: Critical Clinical Impression: Chronic atrial fibrillation with rapid ventricular response, Elevated INR ( international normalized ratio), Chronic renal insufficiency, stage V, Chronic passive hepatic congestion, Hyponatremia Congestive heart failure Qualifiers: Heart failure type: diastolic Heart failure chronicity: acute on chronic Qualified Code(s): I50.33 - Acute on chronic diastolic (congestive) heart failure - Discharge Information *PRESCRIPTION DRUG MONITORING PROGRAM REVIEWED*: Not Applicable *COPY OF PRESCRIPTION DRUG MONITORING REPORT IN PATIENT JEANNA: Not Applicable Referrals: Morenita Guerra NP [Primary Care Provider] - Forms: ED Department Discharge - My Orders Last 24 Hours: My Active Orders 10/19/18 17:30 C-REACTIVE PROTEIN [CHEM] Stat CKMB [CHEM] Stat COMPREHENSIVE METABOLIC PN,CMP [CHEM] Stat MAGNESIUM [CHEM] Stat TROPONIN I [CHEM] Stat TSH [CHEM] Stat 10/19/18 17:36 EKG Documentation Completion [RC] STAT Chest 1V Frontal [CR] Stat 10/19/18 17:37 Peripheral IV Care [RC] . DIRECTED Sodium Chloride 0.9% [Saline Flush] 10 ml FLUSH ASDIRECTED PRN Peripheral IV Insertion Adult [OM.PC] Stat 10/19/18 17:45 Diltiazem 125 mg Sodium Chloride 0.9% [Normal Saline] 100 ml IV TITRATE 10/19/18 17:46 Oxygen Therapy [RC] ASDIRECTED 10/19/18 18:37 Urinary Catheter Assessment [RC] ASDIRECTED 10/19/18 18:45 Insert [place] Catheter [Insert Urinary Catheter] [OM.PC] Q24H - Assessment/Plan Last 24 Hours: My Active Orders 10/19/18 17:30 C-REACTIVE PROTEIN [CHEM] Stat CKMB [CHEM] Stat COMPREHENSIVE METABOLIC PN,CMP [CHEM] Stat MAGNESIUM [CHEM] Stat TROPONIN I [CHEM] Stat TSH [CHEM] Stat 10/19/18 17:36 EKG Documentation Completion [RC] STAT Chest 1V Frontal [CR] Stat 10/19/18 17:37 Peripheral IV Care [RC] . DIRECTED Sodium Chloride 0.9% [Saline Flush] 10 ml FLUSH ASDIRECTED PRN Peripheral IV Insertion Adult [OM.PC] Stat 10/19/18 17:45 Diltiazem 125 mg Sodium Chloride 0.9% [Normal Saline] 100 ml IV TITRATE 10/19/18 17:46 Oxygen Therapy [RC] ASDIRECTED 10/19/18 18:37 Urinary Catheter Assessment [RC] ASDIRECTED 10/19/18 18:45 Insert [place] Catheter [Insert Urinary Catheter] [OM.PC] Q24H
[2018-10-19] MEDS ORDERED: Diltiazem 125 MG in Sodium Chloride 0.9% 100 ML IV SCH (17:45)
[2018-10-19] MEDS ORDERED: Furosemide 40 MG/4 ML VIAL ONE (17:50)
[2018-10-19] MEDS ORDERED: Diltiazem 50 MG/10 ML SDV ONE (17:51)
[2018-10-19 20:36] VITALS: BP 133/75
--- NOTE | 2018-10-20 08:34 | CR ---
Chest: Portable view of the chest was obtained. Comparison: Prior chest x-ray of 11/04/16. Heart is slightly enlarged. Mild atelectasis is noted adjacent to the left hemidiaphragm. Central lung markings are mildly increased though still if not all appear to be chronic. Bony structures are osteopenic. Impression: 1. Mild left basilar atelectasis. 2. Mild cardiomegaly. 3. Increased central lung markings believed to be fairly stable from previous study. Diagnostic code #2
== END 2018-10-19 19:59 ==
LOC: JD.ED 17:15
DX: I13.2 Hypertensive heart and chronic kidney disease with heart failure and with stage 5 chronic kidney disease, or end stage renal disease (principal); I50.33 Acute on chronic diastolic (congestive) heart failure; E87.1 Hypo-osmolality and hyponatremia; I48.91 Unspecified atrial fibrillation; E78.00 Pure hypercholesterolemia, unspecified; N18.9 Chronic kidney disease, unspecified; E11.22 Type 2 diabetes mellitus with diabetic chronic kidney disease; I48.2 Chronic atrial fibrillation; R79.1 Abnormal coagulation profile; N18.5 Chronic kidney disease, stage 5; K76.1 Chronic passive congestion of liver; Z79.899 Other long term (current) drug therapy
CPT/HCPCS: 36415; 71045; 80053; 82009; 82553; 83036; 83605; 83735; 83880; 84443; 84484; 85007; 85027; 85610; 86140; 93005; 96365; 96366; 96375; 96376; 99284; J1940; J3490; J7030; 93010